=== PATIENT | male | born 1990 | race Caucasian/White ===

== ENCOUNTER 2018-10-24 13:51 | Emergency (ER) | payer SELFPAY ==
[2018-10-24 13:51] VITALS: BP 123/83; PULSE 94; RESP 15; TEMP 36.7; O2SAT 96; BMI 19.6
--- NOTE | 2018-10-24 16:15 | ED.VIS.GEN ---
History of Present Illness <Adam Puri - Last Filed: 10/24/18 16:33> Detail of Chief Complaint: Neck pain Informant: Patient Onset: Weeks - Pain is been present intermittent times years. It has been constant since . He describes 6-7 episodes every hour. The symptoms are worse with movement., Month(s) Context: Onset with activity Timing: Continuous Current Severity: Moderate Maximum Severity: Moderate Worsened by: Movement Relieved by: Nothing Associated Symptoms: Denies paresthesia or weakness or dizziness or headache or trauma Narrative: He describes bursts of pain and warmth to the right posterior neck. He is worried he has a blood clot on aneurysm because his father did. The symptoms have been intermittent for years but more constant for the past 3 days. Prior similar symptoms: Yes Recent Illness/Hospitalization: No <SarithaMonica - Last Filed: 10/24/18 17:49> Chief Complaint: Other, Pain/Inj Past Medical History <Adam Puri - Last Filed: 10/24/18 16:33> Smoking Status: Never smoker <AngelagayatriMonica - Last Filed: 10/24/18 17:49> - Allergies and Home Meds Allergies/Adverse Reactions: Allergies [facility] Allergy (Uncoded 10/24/18 13:52) Unknown Primary Care Physician: Endeelia Lynch MD [Primary Care Provider] - Review of Systems General: Denies: Chills, Fever Eyes: Denies: Visual changes - left, Blurred vision - left ENT: Denies: Bilateral ear pain, Left ear pain Cardiovascular: Denies: Chest pain, Palpitations Respiratory: Denies: Dyspnea, Cough, Sputum Gastrointestinal: Denies: Abdominal pain, Nausea, Vomiting Musculoskeletal: Denies: Neck pain - Unable to reproduce right posterior soft tissue neck tenderness. No lymphadenopathy or skin lesions noted, Back pain - Right Skin: Denies: Rash, Abscess Neurological: Denies: Headache, Weakness, Parasthesia <SarithaMonica - Last Filed: 10/24/18 17:49> Physical Exam Vital Signs/Narrative: Vital Signs Temp Pulse Resp BP Pulse Ox 10/24/18 16:29 17 10/24/18 13:51 98.1 F 94 15 123/83 H 96 <JaxsonAdam - Last Filed: 10/24/18 16:33> Vital Signs/Narrative: Vital Signs Temp Pulse Resp BP Pulse Ox 10/24/18 13:51 98.1 F 94 15 123/83 H 96 Inital Vital Signs reviewed: Yes General: Negative for: Well nourished, Well developed Head: Negative for: Normocephalic, Atraumatic Eyes: Negative for: Perrl, EOMI, Pale conjunctiva ENT: Negative for: Moist mucous membranes, No rhinorrhea Neck: Negative for: Supple, Nontender, No lymphadenopathy Cardiovascular: - - No carotid bruit heard.. Negative for: Regular rate, Regular rhythm Respiratory: Negative for: No distress, CTA bilaterally Abdomen: Negative for: Soft, Nontender, Nondistended Back: Negative for: Nontender, Normal Inspection Extremities: Negative for: Nontender, No edema Skin: Negative for: Normal color, No rash Neurological: Alert, Oriented x3, Normal Strength, Normal Sensation, - - Neck is supple. There is no meningeal signs. He is neurologically and neurovascularly intact.. Negative for: Weakness Psychological: Normal affect, Normal Mood <Monica Melara - Last Filed: 10/24/18 17:49> Diagnostic/Tx/Re-eval - Medical Decision Making Evaluated patient with our RESEARCH PROGRAM INTERN. Patient complaining of an abnormal sensation in the right side of his neck. He is concerned that some vascular abnormality. He has had no other symptoms. Well-appearing young male. No acute distress. HEENT exam normal. Neck nontender. No lymphadenopathy. No swelling. Normal neck exam with normal range of motion and rotation. No swelling. No carotid bruits. Otherwise exam is normal. Lungs clear to auscultation. Heart murmur. Abdomen soft and nontender. Extremities moves all 4. Neurovascular intact. Neuro exam normal. Patient has normal exam. Does not need any imaging or testing in the ER today. He can follow-up with outpatient with his primary care physician. Impression: 1. Musculoskeletal neck pain uncertain etiology <Adam Puri - Last Filed: 10/24/18 16:33> - Medical Decision Making He is neurologically intact and nontoxic in appearance. His pain is sporadic I am was unable to reproduce it. There was no fullness or redness or lymphadenopathy appreciated. Because of his soft tissue neck pain is unclear at this time. He did have decreased range of motion with turning his head to the left. No carotid bruit was noted. May have a chronic ligament strain or tendon tightness. It is unclear and he will need further evaluation of his symptoms. He will follow-up with his primary care provider. He was discharged in stable condition. Initially I had prescribed him Flexeril but decided that it may not be necessary as I could not reproduce the pain. He will follow-up with his primary care provider. Impression Musculoskeletal neck pain uncertain etiology <Monica Melara - Last Filed: 10/24/18 17:49> ED Disposition <Adam Puri - Last Filed: 10/24/18 16:33> <Monica Melara - Last Filed: 10/24/18 17:49> - Plan for ED Patient: Disposition: Home or Assisted Living Diagnosis: Cervical myofascial strain Prescriptions: cycloBENZAPRine HCl [Flexeril] 10 mg PO TID PRN PRN #15 tab PRN Reason: Pain Prescription Printed Referrals: Enedelia Lynch MD [Primary Care Provider] -
[2018-10-24 16:29] VITALS: RESP 17
== END 2018-10-24 16:32 | disposition home or self-care (01) ==
PROVIDERS: Emergency Provider Nurse Practitioner; Family Provider Internal Medicine; PCP Internal Medicine
DX: S16.1XXA Strain of muscle, fascia and tendon at neck level, initial encounter (principal); X58.XXXA Exposure to other specified factors, initial encounter; Y93.89 Activity, other specified; Y92.89 Other specified places as the place of occurrence of the external cause; Y99.8 Other external cause status
CPT/HCPCS: 99282

== ENCOUNTER 2019-07-18 17:42 | Emergency (ER) | payer BC, SELFPAY ==
[2019-07-18 17:43] VITALS: BP 123/74; PULSE 85; RESP 16; TEMP 36.9; O2SAT 98; BMI 20.7
--- NOTE | 2019-07-18 18:10 | RAD_ITS ---
STUDY: X-RAY CHEST REASON FOR EXAM: Male, 28 years old. DIZZINESS, SHORTNESS OF BREATH TECHNIQUE: Portable chest COMPARISON: 08/06/2011 FINDINGS: There are mild bibasilar pulmonary opacities. There is no consolidation. There is no demonstrated pleural abnormality. Normal size heart. Normal mediastinum and cuate. Normal visualized pulmonary arteries. Normal visualized aortic arch and descending thoracic aorta. Normal visualized thoracic spine. Normal visualized ribs, clavicles, and shoulders. There is no demonstrated abnormality of the visualized soft tissue structures of the upper abdomen. RAD/Chest 1 View (Portable) IMPRESSION: Mild bibasilar pulmonary opacities, no consolidation Electronically Signed: Mc Miller, at 18:55 EDT Tel , Service support ,
--- NOTE | 2019-07-18 18:17 | ED.VISSUMM ---
- ER Visit Summary Date of Service: 07/18/19 Chief Complaint: Dysuria and penile discharge History of Present Illness: The patient is a [address] Lynch. He states that he has dysuria that began 5 days ago. He denies frequency. Reports he has had penile discharge for the past 3 days that is clear/white. He does report he sexually active. Last sexual intercourse approximately 1 month ago. He is with a single partner and has unprotected intercourse. He states that he has not stepped out and he does not believe she has stepped out either. He has been with her for 8 years. There is been no insertive anal intercourse. Patient was seen at [facility] and had urinalysis obtained and was placed on Bactrim. He was called and told the urine culture was negative. Patient also reports he has a cough that began a week ago. Lasted for 4 days and is completely resolved. He it is nonproductive. He reports he has had chills. However, he states that he has become short of breath today and lightheaded. This does increase when he stands. He is not passed out. Patient has had sick contacts. He lives with his significant other who is been working at [employer] and he reports that she went to a for her grandfather who from [place] 2 weeks ago. He states that he has been quarantined otherwise. States that his was ill approximately 2 weeks ago 2. Physical Examination: Vitals: Stable. Afebrile. General: Well-nourished and well-developed. Head: Normocephalic atraumatic. Neck: Supple, no lymphadenopathy. No JVD. Nontender. Cardiovascular: Regular rate and rhythm. No murmurs. Respiratory: No respiratory distress. Clear to auscultation bilaterally. Abdominal: Soft, nontender, nondistended, normal bowel sounds. No guarding, rebound, or peritoneal signs. : Normal uncircumcised male. There is a small amount of creamy discharge at the meatus. There is no rash. Has no testicular tenderness to palpation. Back: Nontender. Extremities: Nontender, no edema. Skin: Normal color, no rash. Neurologic: Alert and oriented ?3. Cranial nerves II through XII are intact. Normal strength and sensation. Psych: Normal affect. Test Results: CBC is normal. Chem-7 is marked for glucose of 123 and creatinine 1.34. His creatinine was 1.17 previously. UA shows ketones and blood. Clinical Impression(s) from Imaging Studies Chest X-Ray 07/18/19 18:10 IMPRESSION: Mild bibasilar pulmonary opacities, no consolidation Electronically Signed: Mc Miller, at 18:55 EDT Tel , Service support , Emergency Department Course and Treatment: Patient was given Rocephin IM and Zithromax p.o. He had negative orthostatic vital signs. Patient refused IV fluids. Treatment Plan: Patient be discharged with instructions to stop his Bactrim. He is instructed to push fluids. Follow-up with his primary care physician in 2 to 3 days if not improving. He will be contacted if his gonorrhea or chlamydia is positive so that he can tell his significant other and she can be treated as well. Return to the emergency department for any worsening symptoms. Disposition: To home in improved and stable condition. Impression: 1. Urethritis. 2. Renal insufficiency. This note was generated with Dualog dictation software. It may contain incorrect words, spelling, and punctuation that were not noted in review of the chart prior to signing ED Disposition - Plan for ED Patient: Instructions: ED Urethritis Infec Vs Inflam Adult Male Referrals: Enedelia Lynch MD [Primary Care Provider] - 3-5 Days if not improving
[2019-07-18 18:25] LABS: Bacteria 0 SEEN /hpf (None Seen); Mucous, Urine 0 SEEN /hpf (<or=2+); Red Blood Cells-Urine 0 SEEN /hpf (0-5); Squamous Epithelial Cells - UA 0 SEEN /hpf (0-5)
[2019-07-18] MEDS: Azithromycin 250 MG Tablet 1000 MG PO (18:28)
[2019-07-18 18:29] VITALS: BP 113/80; BP 115/85; BP 117/82; PULSE 62; PULSE 68; PULSE 80
[2019-07-18 18:31] LABS: Absolute Neutrophil Count 5.6 X10^3/uL (2.0-7.7); Basophil# 0.03 X10^3/uL; Basophil% 0.3 % (0-1); Eosinophil# 0.07 X10^3/uL; Eosinophils% 0.8 % (0-5); Hematocrit 44.9 % (40-54); Hemoglobin 15.4 g/dL (13.0-16.5); Lymphocyte % 30.1 % (19-41); Mean Corp Hgb Conc 34.3 g/dL (32-36); Mean Corpuscular Hgb 30.6 pg (27.0-32.0); Mean Corpuscular Volume 89.1 fL (80-94); Mean Platelet Vol. 8.9 fl (6.2-12.0); Monocyte# 0.74 X10^3/uL; NRBC Flagged by Analyzer 0 % (0-5); Neutrophil # 5.63 X10^3/uL (2.7-7.7); Neutrophil % 60.6 % (47-70); Platelet Count 331 K/mm3 (150-450); RBC Distribution Width CV 12.1 % (11.6-14.6); RBC Distribution Width SD 39.4 fl (35.1-43.9); Red Blood Count 5.04 M/mm3 (4.6-6.2); White Blood Count 9.3 K/mm3 (4.4-11.0)
[2019-07-18 18:40] LABS: Color, Urine Yellow (Yellow); Glucose, Dipstick Normal (Normal); Ketone-Dipstick 5 mg/dl (Negative); Leukocyte Esterase-Dipstick Negative /ul (Negative); Nitrite-Dipstick Negative (Negative); Occult Blood-Urine 10 /ul (Negative); Protein-Dipstick Negative (Negative); Urine Bilirubin Dipstick Negative (Negative); Urine Clarity Clear (Clear); Urine Urobilinogen Normal (Normal)
[2019-07-18 18:47] LABS: Anion Gap 4 (5-15); BUN 15 mg/dL (7-18); BUN/Creat Ratio 11.2 RATIO (10-20); Calcium,Total 9.6 mg/dL (8.5-10.1); Chloride 107 mmol/L (98-107); Creatinine, Serum 1.34 mg/dL (0.70-1.30); EST Glomerular Filtration Rate 67 mL/min (>60); Est Glom Filt Rate - Afr Amer 81 mL/min (>60); Estimated Creatinine Clearance 75.92 ml/min; Glucose 123 mg/dL (74-106); Sodium Level 139 mmol/L (136-145)
[2019-07-18 18:48] LABS: White Blood Cells 0-5 SEEN /hpf (0-5)
--- NOTE | 2019-07-18 18:52 | ED.RN ---
aware of pt not receiving IV fluids.
[2019-07-18 19:16] VITALS: BP 112/82; PULSE 75; RESP 17; O2SAT 97
--- NOTE | 2019-07-18 19:17 | ED.RN ---
shot time observed for greater than 15 minutes no reaction noted by this rn. pt d/c.
[2019-07-18 20:19] LABS: Chlamydia Trachomatis by PCR Negative (Negative); Neisserai gonorrhoeae by PCR Negative (Negative); Probe Check PASS; Sample Adequacy Control PASS; Specimen Processing Control PASS
== END 2019-07-18 19:18 | disposition home or self-care (01) ==
LOC: ED 18:55
PROVIDERS: Emergency Provider Emergency Medicine; PCP Internal Medicine
DX: N34.2 Other urethritis (principal); N28.9 Disorder of kidney and ureter, unspecified
CPT/HCPCS: 71045; 80048; 81001; 85025; 87491; 87591; 96372; 99285; J7030; A4216

== ENCOUNTER 2020-02-20 17:48 | Emergency (ER) | payer BC, SELFPAY ==
[2020-02-20 17:49] VITALS: BP 114/66; PULSE 110; RESP 18; TEMP 36.9; O2SAT 95; BMI 19.5
--- NOTE | 2020-02-20 17:59 | ED.DCSUM_ITS ---
History of Present Illness Chief Complaint: Dental Informant: Patient Onset: Days Context: Gradual Onset Timing: Continuous Current Severity: Moderate Maximum Severity: Moderate Narrative: The patient is a 29-year-old male who presents to the emergency department dental pain. Patient states that he is actually scheduled for multiple extraction, but not until March of this coming year. He states that he has multiple cavities and molars that need to be removed because of deep space cavity. He states over the past 3 or 4 days, he has had increasing pain. He states especially at night, he will have throbbing. He states when he chews, he gets pain. He denies any trouble speaking or swallowing. Denies any fevers or chills. Has been taking ibuprofen with some improvement, but still has persistent pain. Prior similar symptoms: Yes Recent Illness/Hospitalization: No Past Medical History - Allergies and Home Meds Allergies/Adverse Reactions: Allergies [facility] Allergy (Uncoded 02/20/20 17:52) Unknown Primary Care Physician: Enedelia yLnch MD [Primary Care Provider] - Prior records reviewed: Yes Past Medical History: None Surgical History: no surgical history Smoking Status: Never smoker Review of Systems General: Denies: Chills, Fever, Sweats Eyes: Denies: Visual changes - bilaterally, Diplopia ENT: Denies: Rhinorrhea, Sore throat Cardiovascular: Denies: Chest pain, Palpitations Respiratory: Denies: Dyspnea, Cough, Dyspnea on exertion Gastrointestinal: Denies: Abdominal pain, Nausea, Vomiting, Diarrhea, Melena, Hematochezia Genitourinary: Denies: Dysuria, Hematuria, Frequency Musculoskeletal: Denies: Back pain, Extremity Pain Skin: Denies: Rash, Wounds Neurological: Denies: Headache, Weakness, Numbness Physical Exam Vital Signs/Narrative: Vital Signs Temp Pulse Resp BP Pulse Ox 02/20/20 17:49 98.4 F 110 H 18 114/66 95 Inital Vital Signs reviewed: Yes General: Well nourished, Well developed, No Acute Distress Head: Normocephalic, Atraumatic Eyes: Perrl, EOMI ENT: Moist mucous membranes, No rhinorrhea, - - Oromucosa is pink and moist. There is widespread dental disease. There is significant cavity of tooth #17. He is also has cavity with some focal gum swelling at 30 and 31. The submental space is soft. Neck: Supple, Nontender Cardiovascular: Regular rate, Regular rhythm, No murmurs Respiratory: No distress, CTA bilaterally, Chest nontender Abdomen: Soft, Nontender, Nondistended, Normal bowel sounds Back: Nontender, Normal Inspection Extremities: Nontender, No edema Skin: Normal color, No rash Neurological: Alert, Oriented x3, Cranial nerves II-XII grossly intact, Normal Strength, Normal Sensation Psychological: Normal affect, Normal Mood Diagnostic/Tx/Re-eval - Medical Decision Making The patient presents with dental pain. He has widespread dental disease and is actually scheduled for extraction. He does have some erythema along the gumline. There is multiple cavities within the teeth. There is no Tyler angina. He has no trismus or stridor. The submental space is soft. I am going to treat him with antibiotics. I also given a short course of analgesics, but counseled him that he needs to see his dentist. He is comfortable with this plan of care. He will be discharged home. Impression 1. Dental cavities 2. Periapical abscess ED Disposition - Plan for ED Patient: Instructions: ED ABSCESS DENTAL Prescriptions: Amox/Clavulanate Tablet [Augmentin Tablet] 875 mg PO Q12H #20 tab Prescription Printed Hydrocodone Bitart/Apap 5-325 [[place] 5MG-325MG] 1 tab PO Q6H PRN PRN 3 Days #10 tab PRN Reason: Pain Prescription Printed Referrals: Enedelia Lynch MD [Primary Care Provider] -
== END 2020-02-20 18:23 | disposition home or self-care (01) ==
LOC: ED 18:14
PROVIDERS: Emergency Provider Emergency Medicine; PCP Internal Medicine
DX: K04.7 Periapical abscess without sinus (principal); K02.9 Dental caries, unspecified
CPT/HCPCS: 99282

== ENCOUNTER 2021-09-15 22:16 | Emergency (ER) | payer BC, SELFPAY ==
[2021-09-15 22:16] VITALS: BP 111/85; PULSE 92; RESP 16; TEMP 36.4; O2SAT 99
--- NOTE | 2021-09-15 22:28 | ED.VIS.LOWEX ---
HPI History of Present Illness HPI Narrative: Patient presents with pain in the posterior aspect of his left thigh that began approximate 1 hour prior to arrival. Patient states it began rather suddenly. Patient states it has been constant. Patient describes it as dull and aching. Patient states he was standing when the pain began. Patient states it is worse with standing. Patient denies any paresthesias or weakness. Patient denies any trauma or injury. Patient is concerned that this may be from a blood clot. Chief Complaint: Lower Extremity Injury Onset/Context/Timing Onset: Today and Hours (1) Context: Sudden Onset Quality of Pain: Dull and Aching Location: Left posterior thigh Worsened by: Standing Relieved by: Nothing Associated Symptoms Associated Symptoms: Negative for Parasthesia, Weakness or Loss of Funtion PFSH PFSH Medical History no medical history no medical history Home Medications NK 09/15/21 [History Last Taken Unknown] Allergy/AdvReac Type Severity Reaction Status Date / Time No Known Allergies Allergy Verified 09/15/21 22:18 Family History no significant family his Surgical History no surgical history no surgical history Social History Smoking Status: Never smoker ROS ROS ED Constitutional Constitutional ED: Denies chills or fever(s) Eyes Eyes: Denies blurry vision or change in vision ENT ENT ED: Denies rhinorrhea or sore throat Cardiovascular Cardiovascular: Denies chest pain or palpitations Respiratory/Chest Respiratory/Chest: Denies cough or dyspnea Gastrointestinal Gastrointestinal: Denies nausea or vomiting Genitourinary Genitourinary ED: Denies dysuria or hematuria Musculoskeletal Musculoskeletal: Denies back pain or neck pain Integumentary Denies abscess or rash Neurologic Neurologic: Denies headache(s) or weakness Allergic/Immunologic Allergic/Immunologic ED: Denies mouth swelling or urticaria EXAM Physical Exam Const Vital Signs: 09/15/21 22:16 Temperature 97.6 F L Temperature Source Temporal Pulse Rate 92 Respiratory Rate 16 Blood Pressure 111/85 H Blood Pressure Mean 93 Pulse Ox 99 Oxygen Delivery Method Room Air Positive well nourished and well developed General Appearance ED: well developed and NAD HEENT Reports moist mucous membranes Neck full ROM Extremity Extremity Narrative: There is tenderness over the left posterior thigh along the hamstring muscles. There is pain with flexion of the left hip. There is no calf tenderness. There is no edema. There is no ecchymosis. There is no tenderness over the lumbar spine or sciatic notch. Strength is 5/5 bilaterally in the lower extremities. There are no sensory deficits noted. Neuro oriented x3, CN's II-XII intact bilaterally, moves all extremities and no sensory deficits noted Sensorium / Orientation: alert Motor Exam: strength 5/5 throughout Psych mental status grossly normal MDM MDM MDM Narrative Medical decision making narrative: Patient was advised that this is most likely muscular in nature. I do not think that this is a DVT. There is no swelling. Patient has no risk factors for DVT. There is no tenderness medially along the greater saphenous vein. There is no erythema or warmth. Patient was instructed to use ice to the area. Patient was instructed to take Tylenol or ibuprofen as needed for pain. Patient was instructed to follow-up with his primary care physician in 5 to 7 days. Patient left prior to receiving discharge instructions. Discharge Plan Triage Chief Complaint: Lower Extremity Injury ED Provider: Kalen Bird Dx/Rx/DC Orders Clinical Impression: Left thigh pain Instructions: ED Muscle Strain, Extremity Prescriptions: No Action NK Primary Care Provider: Enedelia Lynch Referrals: Enedelia Lynch MD [Primary Care Provider] - 5-7 Days Disposition Disposition: Home, Self Care
--- NOTE | 2021-09-15 22:32 | NURSING ---
pt voiced frustration with doctors POC. Pt put on shoes and headed out of room. When asked if he wanted to wait for Doctor orders pt refused said I can get my own Ice without paying $10,000 for it. doctor updated.
== END 2021-09-15 22:39 | disposition home or self-care (01) ==
LOC: ED 22:38
PROVIDERS: Emergency Provider Emergency Medicine; PCP Internal Medicine; Visit Provider Emergency Medicine
DX: M79.652 Pain in left thigh (principal)
CPT/HCPCS: 99281

== ENCOUNTER 2022-10-24 03:11 | Emergency (ER) | payer BC, SELFPAY ==
[2022-10-24 03:13] VITALS: BP 109/70; PULSE 77; RESP 18; TEMP 36.5; O2SAT 99; BMI 19.8
--- NOTE | 2022-10-24 03:19 | EX.ED.VIS.PS ---
HPI HPI - Psych History of Present Illness Chief Complaint: Suicidal Informant: patient Narrative Narrative: Patient feeling depressed and having thoughts of suicide with a plan to shoot himself in the head and apparently gestured this tonight, he also has had a suicidal gesture 7 or 8 months ago. Police brought him under pink slip. He has been depressed about his relationship and other things in the life and feels like his life is falling apart. He uses marijuana fairly frequently, alcohol less frequently, and no other drugs no IV drugs. He denies any symptoms of psychosis. PFSH PFSH Medical History no medical history no medical history Home Medications NK 09/15/21 [History Last Taken Unknown] Allergy/AdvReac Type Severity Reaction Status Date / Time No Known Allergies Allergy Verified 10/24/22 03:13 Surgical History no surgical history Social History (Updated 10/24/22 @ 03:[address] Long Ling MD) Smoking Status: Never smoker alcohol intake: current alcohol intake frequency: a few times a month substance use type: marijuana ROS ROS ED Constitutional Constitutional ED: Denies chills or fever(s) Eyes Eyes: Denies change in vision or diplopia ENT ENT ED: Denies rhinorrhea or sore throat Cardiovascular Cardiovascular: Denies chest pain or palpitations Respiratory/Chest Respiratory/Chest: Denies cough or dyspnea Gastrointestinal Gastrointestinal: Denies abdominal pain, diarrhea, nausea or vomiting Genitourinary Genitourinary ED: Denies dysuria or hematuria Musculoskeletal Musculoskeletal: Denies back pain or neck pain Integumentary Denies abscess or rash Neurologic Neurologic: Denies headache(s), paresthesias or weakness Psychiatric Psychiatric: Reports depression, suicidal ideation and suicidal thoughts; Denies homicidal ideation EXAM Physical Exam Const Vital Signs: 10/24/22 03:13 10/24/22 05:12 Temperature 97.7 F L Temperature Source Temporal Pulse Rate 77 Respiratory Rate 18 15 Blood Pressure 109/70 Blood Pressure Mean 83 Pulse Ox 99 Oxygen Delivery Method Room Air Positive well nourished and well developed General Appearance ED: well developed and NAD HEENT Reports moist mucous membranes normocephalic and atraumatic Eyes PERRL and EOMs intact bilaterally General Eye ED: Negative for scleral icterus Neck no lymphadenopathy and supple Resp normal respiratory effort and clear to auscultation bilaterally Cardio no murmurs Rate: regular rate Rhythm: regular rhythm GI non-tender and non-distended Auscultation: normoactive bowel sounds Palpation: soft Back/Spine no CVA tenderness and normal ROM Extremity normal to inspection General Extremety ED: Negative for edema General Extremity: Negative for edema Neuro oriented x3, CN's II-XII intact bilaterally, no sensory deficits noted and gait normal Sensorium / Orientation: alert Motor Exam: strength 5/5 throughout Psych mental status grossly normal, thought process normal, cooperative, activity/motor behavior normal and denies homicidal ideation Mood & Affect: depressed Thought Content: suicidality Skin Lesions: no lesions Rashes: no rashes MDM MDM MDM Narrative Medical decision making narrative: Patient cooperative here with normal vital signs and unremarkable labs, toxicology noted. Patient medically cleared and referred to crisis for further evaluation and disposition. Lab Data Attestation: I reviewed the patient's lab results. Labs: Laboratory Results - last 24 hr 10/24/22 10/24/22 04:05 04:20 WBC 8.2 RBC 4.74 Hgb 14.4 Hct 42.3 MCV 89.2 MCH 30.4 MCHC 34.0 RDW Std Deviation 43.3 RDW Coeff of Elliot 13.3 Plt Count 283 MPV 9.2 Immature Gran % (Auto) 0.200 Neut % (Auto) 67.7 Lymph % (Auto) 23.2 Piatt % (Auto) 7.8 Eos % (Auto) 0.7 Baso % (Auto) 0.4 Absolute Neuts (auto) 5.6 Absolute Lymphs (auto) 1.90 Nucleated RBC % 0 Sodium 139 Potassium 3.4 L Chloride 107 Carbon Dioxide 28.0 Anion Gap 4 L BUN 15 Creatinine 0.90 Estim Creat Clear Calc 105.13 Est GFR (MDRD) Af Amer 125 Est GFR (MDRD) Non-Af 104 BUN/Creatinine Ratio 16.6 Glucose 98 Calcium 8.4 L Total Bilirubin 0.50 AST 12 L ALT 16 Alkaline Phosphatase 80 Total Protein 7.1 Albumin 3.9 Globulin 3.2 Albumin/Globulin Ratio 1.2 Urine Opiates Screen NEGATIVE Urine Methadone Screen NEGATIVE Ur Barbiturates Screen NEGATIVE Ur Phencyclidine Scrn NEGATIVE Ur Amphetamines Screen NEGATIVE MDMA (Ecstasy) Screen NEGATIVE U Benzodiazepines Scrn NEGATIVE Urine Cocaine Screen NEGATIVE U Cannabinoids Screen POSITIVE H Ur Drug Screen Comment Ethyl Alcohol 4.0 Management Discussion w/another healthcare provider: social worker school/Case management Discharge Plan Triage Chief Complaint: Suicidal ED Provider: Long Ling Dx/Rx/DC Orders Clinical Impression: Suicidal ideation Prescriptions: No Action NK Primary Care Provider: Care Physician,No Primary Referrals: Care Physician,No Primary [Primary Care Provider] - Disposition Disposition: Psychiatric Hospital or Unit
[2022-10-24 04:13] LABS: Absolute Neutrophil Count 5.6 X10^3/uL (2.0-7.7); Basophil# 0.03 X10^3/uL; Basophil% 0.4 % (0-1); Eosinophil# 0.06 X10^3/uL; Eosinophils% 0.7 % (0-5); Hematocrit 42.3 % (40-54); Hemoglobin 14.4 g/dL (13.0-16.5); Lymphocyte % 23.2 % (19-41); Mean Corpuscular Hgb 30.4 pg (27.0-32.0); Mean Corpuscular Volume 89.2 fL (80-94); Mean Platelet Vol. 9.2 fl (6.2-12.0); Monocyte# 0.64 X10^3/uL; Monocyte% 7.8 % (0-10); NRBC Flagged by Analyzer 0 % (0-5); Neutrophil # 5.55 X10^3/uL (2.7-7.7); Neutrophil % 67.7 % (47-70); Platelet Count 283 K/mm3 (150-450); RBC Distribution Width CV 13.3 % (11.6-14.6); RBC Distribution Width SD 43.3 fl (35.1-43.9); Red Blood Count 4.74 M/mm3 (4.6-6.2); White Blood Count 8.2 K/mm3 (4.4-11.0)
[2022-10-24 04:37] LABS: ALB/GLOB Ratio 1.2 RATIO (0.9-2.4); AST(SGOT) 12 U/L (15-37); Alanine Aminotransfer ALT/SGPT 16 U/L (16-61); Albumin, Serum 3.9 g/dL (3.2-5.0); Alkaline Phosphatase 80 U/L (45-117); Anion Gap 4 (5-15); BUN 15 mg/dL (7-18); BUN/Creat Ratio 16.6 RATIO (10-20); Calcium,Total 8.4 mg/dL (8.5-10.1); Chloride 107 mmol/L (98-107); EST Glomerular Filtration Rate 104 mL/min (>60); Est Glom Filt Rate - Afr Amer 125 mL/min (>60); Estimated Creatinine Clearance 105.13 ml/min; Globulin 3.2 g/dL (2.2-4.2); Glucose 98 mg/dL (74-106); Potassium 3.4 mmol/L (3.5-5.1); Protein, Total 7.1 g/dL (6.4-8.2); Sodium Level 139 mmol/L (136-145)
[2022-10-24 04:44] LABS: Amphetamine Urine VISTA NEGATIVE (<1000 ng/mL); Barbiturate Urine VISTA NEGATIVE (< 200 ng/mL); Benzodiazepine Urine VISTA NEGATIVE (< 200 ng/mL); Cocaine Urine VISTA NEGATIVE (< 300 ng/mL); Ecstacy Urine VISTA NEGATIVE (< 500 ng/mL); Methadone Urine VISTA NEGATIVE (< 300 ng/mL); PCP Urine VISTA NEGATIVE (< 25 ng/mL); THC Urine VISTA POSITIVE (< 50 ng/mL); Vista UDS pH Range 6
[2022-10-24 05:12] VITALS: RESP 15
--- NOTE | 2022-10-24 09:04 | EKG12_ITS ---
Test Reason : MENTAL HEALTH Blood Pressure : / mmHG Vent. Rate : 060 BPM Atrial Rate : 060 BPM P-R Int : 136 ms QRS Dur : 106 ms QT Int : 386 ms P-R-T Axes : 038 080 072 degrees QTc Int : 386 ms Normal sinus rhythm Incomplete right bundle branch block Borderline ECG Confirmed by CLEO BONILLA, MELISSA ([id number]), graphics editor SUSAN MCKEON ([id number]) on 10/25/2022 9:57:52 AM Referred By: DOREEN Confirmed By:MELISSA GALLO MD
[2022-10-24 09:09] VITALS: BP 117/87; PULSE 64; RESP 14; O2SAT 97
[2022-10-24 10:18] VITALS: RESP 16
--- NOTE | 2022-10-24 12:31 | ED.RN ---
ANGÉLICA CALLED, REQUESTING QT/QTC FROM ECG READ TO THEM OVER THE PHONE. DENY FURTHER QUESTIONS.
--- NOTE | 2022-10-24 12:37 | ED.RN ---
PT RESTING QUIETLY IN BED, ATE LUNCH, DENIES FURTHER NEEDS. PT CONTINUES TO COOPERATIVE WITH CARE
--- NOTE | 2022-10-24 12:56 | NURSING ---
CALLED PHYSICIANS TO SET UP TRANSPORT TO [facility]- ETA GIVEN 90 MINUTES-- [id number]
[2022-10-24 13:00] VITALS: BP 121/83; PULSE 68; RESP 16; O2SAT 98
--- NOTE | 2022-10-24 13:10 | ED.RN ---
NURSE TO NURSE REPORT CALLED TO ANNELIESE AT [facility]. ALL QUESTIONS ANSWERED.
== END 2022-10-24 14:58 ==
PROVIDERS: Emergency Provider Emergency Medicine; Visit Provider Emergency Medicine
DX: F32.A Depression, unspecified (principal); R45.851 Suicidal ideations
CPT/HCPCS: 80053; 80307; 82077; 85025; 87811; 93005; 99285; A4216

== ENCOUNTER 2022-12-24 15:12 | Emergency (ER) | payer BC, SELFPAY ==
[2022-12-24 15:13] VITALS: BP 120/85; PULSE 90; RESP 18; TEMP 36.1; O2SAT 100
[2022-12-24 15:16] VITALS: BMI 19.8
--- NOTE | 2022-12-24 15:47 | EX.ED.DYSGE1 ---
HPI History of Present Illness Chief Complaint: Rash Informant: patient Narrative Narrative: She has had a rash for about 11 days. He was tried on about a 5-day course of prednisone but did not help. He states it itches quite a bit. It started on his arms. Its really on arms and legs now. He had just a couple spots on his body. Nothing in his mouth. No fever. No nausea vomiting. No blistering. No known exposures. No recent antibiotics. He was on topical and oral steroids by urgent care. [facility] Medical History Anxiety Depression Prediabetes Home Medications acyclovir 400 mg tablet 400 mg PO BID #14 tabs 12/24/22 [Rx Last Taken Unknown] hydroxyzine HCl 25 mg tablet 25 mg PO Q6H PRN itching #20 tabs 12/24/22 [Rx Last Taken Unknown] Allergy/AdvReac Type Severity Reaction Status Date / Time No Known Allergies Allergy Verified 12/24/22 15:13 Social History Smoking Status: Never smoker alcohol intake: current alcohol intake frequency: a few times a month substance use type: marijuana ROS ROS ED Constitutional Constitutional ED: Denies chills or fever(s) Eyes Eyes: Denies blurry vision ENT ENT ED: Denies rhinorrhea or sore throat Cardiovascular Cardiovascular: Denies chest pain or palpitations Respiratory/Chest Respiratory/Chest: Denies cough or dyspnea Gastrointestinal Gastrointestinal: Denies abdominal pain, diarrhea, nausea or vomiting Genitourinary Genitourinary ED: Denies dysuria Musculoskeletal Musculoskeletal: Denies arthralgias or myalgias Integumentary Reports rash Neurologic Neurologic: Denies headache(s) or paresthesias Endocrine Endocrinology: Denies polydipsia or polyuria Hematologic/Lymphatic Hematologic/Lymphatic: Denies lymphadenopathy Allergic/Immunologic Allergic/Immunologic ED: Denies urticaria EXAM Physical Exam Narrative Exam Narrative: General: Patient awake alert carries on normal conversation nontoxic. HEENT shows no rashes. No intraoral rashes. No petechiae or purpura. No ulcerations at all. Neck is supple no meningismus. Lungs are clear bilaterally and saturations are normal 100% on room air showing no hypoxia. Heart is regular. No murmur. Pulses are normal distally. Abdomen is soft completely nontender. No hepatosplenomegaly is noted. No lymphadenopathy. Extremities show no swelling or pain with motion. No swollen joints. Skin shows diffuse red coalescing pack she is mostly in the lower portion of upper and lower extremities. There are just a couple spots near the right and left hips. Almost none on the torso. There is a couple of these on the forearm that do appear to be target lesions more consistent with erythema multiforme. But we are 11 days into this and some of these I think have coalesced. Const Vital Signs: 12/24/22 15:13 Temperature 96.9 F L Temperature Source Temporal Pulse Rate 90 Respiratory Rate 18 Blood Pressure 120/85 H Blood Pressure Mean 96 Pulse Ox 100 Oxygen Delivery Method Room Air MDM MDM MDM Narrative Medical decision making narrative: Patient has already been tried on steroids. I explained that erythema multiforme and will go away on its own. He has had cold sores before so we will try acyclovir as this will sometimes be of benefit. We will write for medicines for itch. We discussed reasons to return and follow-up. Discharge Plan Triage Chief Complaint: Rash ED Provider: Paco Sandoval Dx/Rx/DC Orders Clinical Impression: Erythema multiforme Instructions: ED Erythema Multiforme Prescriptions: New hydroxyzine HCl 25 mg tablet 25 mg PO Q6H PRN (Reason: itching) Qty: 20 0RF acyclovir 400 mg tablet 400 mg PO BID Qty: 14 0RF Primary Care Provider: Nikolay Johnson Referrals: Gissel Silveira MD [Non-Staff] - 3-5 Days Care Physician,No Primary [Non-Staff] - Disposition Disposition: Home, Self Care Discharge Date/Time: 12/24/22 15:55
== END 2022-12-24 15:55 | disposition home or self-care (01) ==
LOC: ED 15:50
PROVIDERS: Emergency Provider Emergency Medicine; PCP Internal Medicine; Visit Provider Emergency Medicine
DX: L51.9 Erythema multiforme, unspecified (principal)
CPT/HCPCS: 99282

== ENCOUNTER 2023-04-23 08:55 | Inpatient (IN) | payer BC, SELFPAY ==
[2023-04-23] VITALS (9 sets, daily range): BP systolic 111–124; BP diastolic 68–86; PULSE 68–96; RESP 15–18; TEMP 35.7–36.6; O2SAT 95–98; BMI 21.2
--- NOTE | 2023-04-23 09:25 | EDS_ITS ---
HPI History of Present Illness Chief Complaint: Suicidal Informant: patient and EMS Narrative Narrative: 32-year-old male presenting to the emergency room with an intentional overdose. Patient states he was fighting with his child's mother when he took several h andfuls of pills. He states he got the pills from [place] when he was admitted 6 months ago for suicidal ideation. Patient states he knows there is trazodone but does not know any of the other medicines. This occurred about 40 minutes ago. He admits that he took this as it is an attempt to end his life. He continues to feel suicidal. He also notes some associated nausea and vomiting. Patient is not forthcoming with any information. [facility] Medical History Anxiety Depression Prediabetes Home Medications NK 04/23/23 [History Last Taken Unknown] Allergy/AdvReac Type Severity Reaction Status Date / Time No Known Allergies Allergy Verified 04/23/23 09:06 Social History Smoking Status: Never smoker alcohol intake: current alcohol intake frequency: a few times a month substance use type: marijuana ROS ROS ED Constitutional Constitutional ED: Denies chills, fever(s) or weight loss Eyes Eyes: Denies change in vision or diplopia ENT ENT ED: Denies ear pain, rhinorrhea or sore throat Cardiovascular Cardiovascular: Denies chest pain, orthopnea, palpitations or racing heartbeat Respiratory/Chest Respiratory/Chest: Denies cough, dyspnea or orthopnea Gastrointestinal Gastrointestinal: Reports nausea and vomiting; Denies abdominal pain or diarrhea Genitourinary Genitourinary ED: Denies dysuria, hematuria or urinary frequency Musculoskeletal Musculoskeletal: Denies arthralgias or myalgias Integumentary Denies abscess or rash Neurologic Neurologic: Denies headache(s) or weakness Psychiatric Psychiatric: Reports depression, suicidal ideation and suicidal thoughts; Denies anxiety Endocrine Endocrinology: Denies polydipsia, polyphagia or polyuria Allergic/Immunologic Allergic/Immunologic ED: Denies mouth swelling, tongue swelling or urticaria EXAM Physical Exam Narrative Exam Narrative: Patient appears nauseated. He speaks very quietly and with a paucity of words. Const Vital Signs: 04/23/23 08:56 04/23/23 10:32 04/23/23 13:00 Temperature 96.3 F L Temperature Source Temporal Pulse Rate 84 68 Respiratory Rate 15 16 18 Blood Pressure 124/86 H 116/78 Blood Pressure Mean 98 90 Pulse Ox 95 97 Oxygen Delivery Method Room Air Room Air 04/23/23 14:00 Temperature Temperature Source Pulse Rate Respiratory Rate 18 Blood Pressure Blood Pressure Mean Pulse Ox Oxygen Delivery Method Positive well nourished and well developed General Appearance ED: well developed HEENT Reports normocephalic, head/scalp atraumatic and moist mucous membranes Eyes PERRL and EOMs intact bilaterally Neck no lymphadenopathy, supple and no JVD Resp normal respiratory effort and clear to auscultation bilaterally Cardio regular rate, regular rhythm and no murmurs GI normal to inspection, nondistended, normoactive bowel sounds and non-tender Palpation: soft Back/Spine no CVA tenderness and normal ROM Extremity normal to inspection General Extremety ED: Negative for edema General Extremity: Negative for edema Neuro oriented x3 and CN's II-XII intact bilaterally Sensorium / Orientation: alert Motor Exam: strength 5/5 throughout Psych Psych Narrative: Patient admits to suicide attempt and suicidal thoughts Mood & Affect: depressed; Negative for tearful Skin no rashes or lesions noted and no wounds MDM MDM MDM Narrative Medical decision making narrative: Patient had a sitter placed due to suicidal ideation. ABG shows no acidosis a normal bicarbonate at 24.6. Basic blood work was obtained. Lactic acid 1.9 glucose 141 creatinine 1.03 potassium is 3.7 and CBC normal lipase 18 liver enzymes normal urinalysis no overt infection toxicology was obtained negative acetaminophen or salicylates alcohol was 0. Patient had a lot of retching and received Zofran. Charcoal/sorbitol was ordered as ingestion was well less than 60 minutes before arrival. Of the patient's belongings there is a Mountain Dew canned that is a hidden compartment style can. This is filled with various medications of different shapes colors and sizes. It is from this canister that he states that he took several handfuls of medications. I cannot be sure of how much he took or of what. He has been sleeping occasionally awakening to retch. I think will be very difficult to clear him within a few hours to go to psychiatric hospital. He has been watched on the monitor and does not show any QRS widening or dysrhythmias. I think it be best that we observe him in the hospital and after a prolonged period of observation consults mental health to see about placing him to psychiatric facility. I filled out a pink slip for this hospital. History & Record Review Discussion w/independent historian: EMS personnel and Patient Lab Data Attestation: I reviewed the patient's lab results. Labs: Laboratory Results - last 24 hr 04/23/23 04/23/23 09:45 13:19 WBC 8.6 RBC 5.19 Hgb 15.7 Hct 46.5 MCV 89.6 MCH 30.3 MCHC 33.8 RDW Std Deviation 39.7 RDW Coeff of Elliot 12.2 Plt Count 328 MPV 9.1 Immature Gran % (Auto) 0.400 Neut % (Auto) 69.3 Lymph % (Auto) 21.1 [place] % (Auto) 8.3 Eos % (Auto) 0.5 Baso % (Auto) 0.4 Absolute Neuts (auto) 6.0 Absolute Lymphs (auto) 1.81 Nucleated RBC % 0 PT 12.9 INR 1.0 APTT 27.6 Sodium 136 Potassium 3.7 Chloride 108 H Carbon Dioxide 24.0 Anion Gap 4 L BUN 21 H Creatinine 1.03 Estim Creat Clear Calc 97.86 Est GFR (MDRD) Af Amer 107 Est GFR (MDRD) Non-Af 89 BUN/Creatinine Ratio 20.4 H Glucose 141 H Lactic Acid 1.9 Calcium 9.1 Total Bilirubin 0.80 Direct Bilirubin 0.19 AST 13 L ALT 16 Alkaline Phosphatase 70 Troponin I High Sens 5 Total Protein 7.1 Albumin 3.9 Globulin 3.2 Lipase 18 Urine Color Yellow Urine Clarity Clear Urine pH 6.0 Ur Specific [place] 1.020 Urine Protein 30 H Urine Glucose (UA) Normal Urine Ketones Negative Urine Occult Blood 10 H Urine Nitrite Negative Urine Bilirubin Negative Urine Urobilinogen 1 H Ur Leukocyte Esterase Negative Urine RBC 0-5 SEEN Urine WBC 0-5 SEEN Ur Squamous Epith Cells 0 SEEN Urine Bacteria 0 SEEN Urine Mucus 0 SEEN Salicylates < 1.7 L Urine Opiates Screen NEGATIVE Urine Methadone Screen NEGATIVE Acetaminophen < 2.0 L Ur Barbiturates Screen NEGATIVE Ur Phencyclidine Scrn NEGATIVE Ur Amphetamines Screen NEGATIVE MDMA (Ecstasy) Screen POSITIVE H U Benzodiazepines Scrn NEGATIVE Urine Cocaine Screen NEGATIVE U Cannabinoids Screen POSITIVE H Ur Drug Screen Comment Ethyl Alcohol < 3.0 ABG Data ABG results: ABG 01/31/24 10:15 Specimen Type ART Sample Site L Radial pH 7.40 Bicarbonate Actual 24.6 Total CO2 26 Base Excess 0 O2 Saturation 99 ABG pCO2 39.9 ABG pO2 124 H O2 Delivery Device Room Air Vent Mode Not entered EKG Initial EKG: Attestation: I personally reviewed and interpreted this EKG as follows: Comments: Normal sinus rhythm with a ventricular rate of 89 bpm. No significant QT prolongation noted. Management Discussion w/another healthcare provider: Hospitalist Discharge Plan Triage Chief Complaint: Suicidal ED Provider: Sean Matthews Dx/Rx/DC Orders Prescriptions: No Action NK Primary Care Provider: Nikolay Johnson Referrals: Nikolay Johnson MD [Primary Care Provider] -
[2023-04-23 09:59] LABS: Absolute Lymphocyte Count 1.81 X10^3/uL (0.83-4.51); Basophil# 0.03 X10^3/uL; Basophil% 0.4 % (0-1); Eosinophil# 0.04 X10^3/uL; Eosinophils% 0.5 % (0-5); Hematocrit 46.5 % (40-54); Hemoglobin 15.7 g/dL (13.0-16.5); Lymphocyte # 1.81 X10^3/ul (0.83-4.51); Lymphocyte % 21.1 % (19-41); Mean Corp Hgb Conc 33.8 g/dL (32-36); Mean Corpuscular Hgb 30.3 pg (27.0-32.0); Mean Corpuscular Volume 89.6 fL (80-94); Mean Platelet Vol. 9.1 fl (6.2-12.0); Monocyte# 0.71 X10^3/uL; Monocyte% 8.3 % (0-10); NRBC Flagged by Analyzer 0 % (0-5); Neutrophil # 5.95 X10^3/uL (2.7-7.7); Neutrophil % 69.3 % (47-70); Platelet Count 328 K/mm3 (150-450); RBC Distribution Width CV 12.2 % (11.6-14.6); RBC Distribution Width SD 39.7 fl (35.1-43.9); Red Blood Count 5.19 M/mm3 (4.6-6.2); White Blood Count 8.6 K/mm3 (4.4-11.0)
[2023-04-23 10:12] LABS: Prothrombin Time (Protime)PT. 12.9 SECONDS (11.7-14.9)
[2023-04-23 10:13] LABS: Partial Thromboplast Time 27.6 Seconds (24.1-36.2)
[2023-04-23 10:19] LABS: Base Excess 0 mmol/L (-2 to +2); Bicarbonate 24.6 mmol/L (22-26); Blood Gas Specimen Type ART; Mode Not entered; O2 Delivery Device Room Air; PO2 124 mmHG (75-100); SITE L Radial; SO2 99 % (95-99); Total Carbon Dioxide 26 mmol/L; pCO2 39.9 mmHg (35-45)
[2023-04-23 10:21] LABS: AST(SGOT) 13 U/L (15-37); Alanine Aminotransfer ALT/SGPT 16 U/L (16-61); Albumin, Serum 3.9 g/dL (3.2-5.0); Alkaline Phosphatase 70 U/L (45-117); Anion Gap 4 (5-15); BUN 21 mg/dL (7-18); BUN/Creat Ratio 20.4 RATIO (10-20); Bilirubin, Direct 0.19 mg/dL (0.00-0.30); Calcium,Total 9.1 mg/dL (8.5-10.1); Chloride 108 mmol/L (98-107); Creatinine, Serum 1.03 mg/dL (0.70-1.30); EST Glomerular Filtration Rate 89 mL/min (>60); Est Glom Filt Rate - Afr Amer 107 mL/min (>60); Estimated Creatinine Clearance 97.86 ml/min; Globulin 3.2 g/dL (2.2-4.2); Glucose 141 mg/dL (74-106); Lipase 18 U/L (13-75); Potassium 3.7 mmol/L (3.5-5.1); Protein, Total 7.1 g/dL (6.4-8.2); Sodium Level 136 mmol/L (136-145); Troponin-I HS 5 pg/mL (3.0-78.0)
[2023-04-23 10:34] LABS: Lactic Acid 1.9 mmol/L (0.4-1.9)
[2023-04-23] MEDS: Activated Charcoal/Sorbitol 50 GM/240 ML BOT PO (10:37)
[2023-04-23] MEDS: Ondansetron 4 MG/2 ML Vial IV (10:43)
[2023-04-23 11:16] LABS: Acetaminophen (Tylenol) Level < 2.0 ug/mL (10.0-30.0); Alcohol, Blood (Medical)-Serum < 3.0 mg/dL; Salicylate < 1.7 mg/dL (2.8-20.0)
[2023-04-23 13:32] LABS: Bacteria 0 SEEN /hpf (None Seen); Mucous, Urine 0 SEEN /hpf (<or=2+); Squamous Epithelial Cells - UA 0 SEEN /hpf (0-5)
[2023-04-23 13:34] LABS: Color, Urine Yellow (Yellow); Glucose, Dipstick Normal (Normal); Ketone-Dipstick Negative (Negative); Leukocyte Esterase-Dipstick Negative /ul (Negative); Nitrite-Dipstick Negative (Negative); Occult Blood-Urine 10 /ul (Negative); Protein-Dipstick 30 mg/dl (Negative); Urine Bilirubin Dipstick Negative (Negative); Urine Clarity Clear (Clear); Urine Urobilinogen 1 mg/dl (Normal)
[2023-04-23 13:46] LABS: Red Blood Cells-Urine 0-5 SEEN /hpf (0-5); White Blood Cells 0-5 SEEN /hpf (0-5)
[2023-04-23 14:08] LABS: Amphetamine Urine VISTA NEGATIVE (<1000 ng/mL); Barbiturate Urine VISTA NEGATIVE (< 200 ng/mL); Benzodiazepine Urine VISTA NEGATIVE (< 200 ng/mL); Cocaine Urine VISTA NEGATIVE (< 300 ng/mL); Ecstacy Urine VISTA POSITIVE (< 500 ng/mL); Methadone Urine VISTA NEGATIVE (< 300 ng/mL); PCP Urine VISTA NEGATIVE (< 25 ng/mL); THC Urine VISTA POSITIVE (< 50 ng/mL); Vista UDS pH Range 6
--- NOTE | 2023-04-23 14:46 | NURSING ---
MED SURG OBS HUYNH INTENTIONAL OVERDOSE, SI
--- NOTE | 2023-04-23 15:09 | HP.PCM.HOS_ITS ---
HPI - General General Date of Admission: 04/23/23 Date of Service: 04/23/23 Chief Complaint: Suicide attempt HPI Narrative KHUSHBOO ROUSE, is a 32-year-old male with history of depression and anxiety presented to [facility] 04/23/2023 with an intentional overdose. He was fighting with his child's mother and took several handfuls of pills. He is unsure exactly what pills he took but does know that trazodone was among them, reportedly got the pills from [place] when he was admitted there 6 months ago for suicidal ideation. Ingestion took place 40 minutes prior to arrival so charcoal ordered. Patient tired in ED and has had some nausea and vomiting, reportedly took the pills in an attempt to end his life and endorses continued to feel suicidal. In ED drug screen positive for MDMA and THC though MDMA may be false positive for one of the medications he took. Patient resting comfortably but given unclear ingestion hospitalist contacted for admission to monitor. Patient evaluated at bedside and reports he took the pills earlier and notes the trazodone and said he thinks there were medicines for anxiety and depression but does not know which ones. Nausea slowly improving, reports overall he just feels exhausted, has no other specific or acute complaints. Verbalized understanding about admission and plans for crisis evaluation likely tomorrow if patient stable. [facility] Medical History Anxiety Depression Prediabetes Home Medications NK 04/23/23 [History Last Taken Unknown] Allergy/AdvReac Type Severity Reaction Status Date / Time No Known Allergies Allergy Verified 04/23/23 09:06 Social History Smoking Status: Never smoker alcohol intake: current alcohol intake frequency: a few times a month substance use type: marijuana ROS ROS Narrative General: Denies fever/chills, overall feels exhausted HENT: Slight headache, denies stuffy nose, denies sore throat EYES: Denies changes in vision Resp: Denies cough, denies shortness of breath Cardiac: Denies chest pain GI: Denies abdominal pain, denies changes in bowel, had some nausea and vomiting with improving : Denies changes in urination Extremity: Denies swelling MSK: Denies weakness Neuro: Denies any numbness/tingling Heme: Denies any bleeding or bruising Skin: Denies rashes Psychiatric: Attempted suicide Vital Signs Vital Signs Vital Signs: 04/23/23 08:56 04/23/23 10:32 04/23/23 13:00 Temperature 96.3 F L Temperature Source Temporal Pulse Rate 84 68 Respiratory Rate 15 16 18 Blood Pressure 124/86 H 116/78 Blood Pressure Mean 98 90 Pulse Ox 95 97 Oxygen Delivery Method Room Air Room Air 04/23/23 14:00 Temperature Temperature Source Pulse Rate Respiratory Rate 18 Blood Pressure Blood Pressure Mean Pulse Ox Oxygen Delivery Method Weight Weight: 67.2 kg Body Mass Index (BMI) 21.2 Physical Exam Narrative General: Wakes up easily and answers questions, appears tired but stays awake without difficulty HEENT: Atraumatic, normocephalic Eyes: Anicteric, normal conjunctiva, extraocular movements grossly intact Neck: Supple Respiratory: Clear to auscultation bilaterally, normal respiratory effort Cardiovascular: Regular rate and rhythm GI: Soft, nontender, nondistended Extremities: No edema Musculoskeletal: Moving all extremities Neuro: No overt focal neurological deficits Skin: No rashes appreciated Psych: Flat affect Results Lab / Micro Data 04/23/23 09:45 04/23/23 09:45 Labs: Laboratory Results - last 24 hr 04/23/23 09:45: WBC 8.6, RBC 5.19, Hgb 15.7, Hct 46.5, MCV 89.6, MCH 30.3, MCHC 33.8, RDW Std Deviation 39.7, RDW Coeff of Elliot 12.2, Plt Count 328, MPV 9.1, Immature Gran % (Auto) 0.400, Neut % (Auto) 69.3, Lymph % (Auto) 21.1, [place] % (Auto) 8.3, Eos % (Auto) 0.5, Baso % (Auto) 0.4, Absolute Neuts (auto) 6.0, Absolute Lymphs (auto) 1.81, Nucleated RBC % 0, PT 12.9, INR 1.0, APTT 27.6, Sodium 136, Potassium 3.7, Chloride 108 H, Carbon Dioxide 24.0, Anion Gap 4 L, BUN 21 H, Creatinine 1.03, Estim Creat Clear Calc 97.86, Est GFR (MDRD) Af Amer 107, Est GFR (MDRD) Non-Af 89, BUN/Creatinine Ratio 20.4 H, Glucose 141 H, Lactic Acid 1.9, Calcium 9.1, Total Bilirubin 0.80, Direct Bilirubin 0.19, AST 13 L, ALT 16, Alkaline Phosphatase 70, Troponin I High Sens 5, Total Protein 7.1, Albumin 3.9, Globulin 3.2, Lipase 18, Salicylates < 1.7 L, Acetaminophen < 2.0 L, Ethyl Alcohol < 3.0 04/23/23 13:19: Urine Color Yellow, Urine Clarity Clear, Urine pH 6.0, Ur Specific [place] 1.020, Urine Protein 30 H, Urine Glucose (UA) Normal, Urine Ketones Negative, Urine Occult Blood 10 H, Urine Nitrite Negative, Urine Bilirubin Negative, Urine Urobilinogen 1 H, Ur Leukocyte Esterase Negative, Urine RBC 0-5 SEEN, Urine WBC 0-5 SEEN, Ur Squamous Epith Cells 0 SEEN, Urine Bacteria 0 SEEN, Urine Mucus 0 SEEN, Urine Opiates Screen NEGATIVE, Urine Methadone Screen NEGATIVE, Ur Barbiturates Screen NEGATIVE, Ur Phencyclidine Scrn NEGATIVE, Ur Amphetamines Screen NEGATIVE, MDMA (Ecstasy) Screen POSITIVE H , U Benzodiazepines Scrn NEGATIVE, Urine Cocaine Screen NEGATIVE, U Cannabinoids Screen POSITIVE H, Ur Drug Screen Comment ABG Data ABG results: ABG 04/23/23 10:15 Specimen Type ART Sample Site L Radial pH 7.40 Bicarbonate Actual 24.6 Total CO2 26 Base Excess 0 O2 Saturation 99 ABG pCO2 39.9 ABG pO2 124 H O2 Delivery Device Room Air Vent Mode Not entered Assessment & Plan Assessment/Plan (1) Suicide attempt: PLAN: Plan # Suicide attempt via ingestion -Reportedly took several handfuls of unidentified medications and only knows that some of them were trazodone -Received charcoal -Vitally stable however given unclear amount and type of medicine the patient ingested it is reasonable to monitor in hospital prior to considering placement -Tylenol and salicylate negative, alcohol negative -UDS THC and MDMA though MDMA may be false positive for one of the medications he ingested but it is unclear -Patient denies any illicit drug use or tobacco use and said he drinks occas ionally smokes marijuana occasionally -Will monitor and if patient stable will need crisis to see tomorrow to discuss possible placement #DVT ppx: Low risk, ambulatory Emily Hernandez MD Charges/Coding Visit Charges Inpatient E&M: 54811 Init Hosp L1
[2023-04-23] MEDS: 0.9% Normal Saline (1000mL) 1,000 ML 75 ML IV (18:26)
[2023-04-23] MEDS: Acetaminophen 325 MG Tablet 650 MG PO (18:30)
[2023-04-24] MEDS: Acetaminophen 325 MG Tablet 650 MG PO (00:30)
[2023-04-24 03:00] VITALS: BP 104/68; PULSE 57; RESP 14; TEMP 36.2; O2SAT 98
[2023-04-24 07:56] LABS: Absolute Lymphocyte Count 1.57 X10^3/uL (0.83-4.51); Absolute Neutrophil Count 5.3 X10^3/uL (2.0-7.7); Basophil# 0.03 X10^3/uL; Basophil% 0.4 % (0-1); Eosinophil# 0.03 X10^3/uL; Eosinophils% 0.4 % (0-5); Hematocrit 43.7 % (40-54); Hemoglobin 14.6 g/dL (13.0-16.5); Lymphocyte # 1.57 X10^3/ul (0.83-4.51); Lymphocyte % 20.6 % (19-41); Mean Corp Hgb Conc 33.4 g/dL (32-36); Mean Corpuscular Hgb 29.9 pg (27.0-32.0); Mean Corpuscular Volume 89.5 fL (80-94); Mean Platelet Vol. 9.1 fl (6.2-12.0); Monocyte# 0.68 X10^3/uL; Monocyte% 8.9 % (0-10); NRBC Flagged by Analyzer 0 % (0-5); Neutrophil # 5.27 X10^3/uL (2.7-7.7); Neutrophil % 69.3 % (47-70); Platelet Count 311 K/mm3 (150-450); RBC Distribution Width CV 12.2 % (11.6-14.6); Red Blood Count 4.88 M/mm3 (4.6-6.2); White Blood Count 7.6 K/mm3 (4.4-11.0)
[2023-04-24 08:43] LABS: ALB/GLOB Ratio 1.2 RATIO (0.9-2.4); AST(SGOT) 10 U/L (15-37); Alanine Aminotransfer ALT/SGPT 15 U/L (16-61); Albumin, Serum 3.5 g/dL (3.2-5.0); Alkaline Phosphatase 62 U/L (45-117); Anion Gap 3 (5-15); BUN 15 mg/dL (7-18); BUN/Creat Ratio 15.6 RATIO (10-20); Calcium,Total 8.7 mg/dL (8.5-10.1); Chloride 110 mmol/L (98-107); Creatinine, Serum 0.96 mg/dL (0.70-1.30); EST Glomerular Filtration Rate 96 mL/min (>60); Est Glom Filt Rate - Afr Amer 116 mL/min (>60); Estimated Creatinine Clearance 99.06 ml/min; Globulin 2.8 g/dL (2.2-4.2); Glucose 111 mg/dL (74-106); Magnesium 2.6 mg/dL (1.6-2.6); Potassium 4.1 mmol/L (3.5-5.1); Protein, Total 6.3 g/dL (6.4-8.2); Sodium Level 139 mmol/L (136-145); Thyroid Stim Hormone (TSH) 0.64 uIU/mL (0.358-3.74)
--- NOTE | 2023-04-24 09:03 | CASEMGMT ---
Per RN physician said patient is medically cleared for crisis evaluation. SW faxed clinicals to crisis. SW also called crisis and made a referral. Susan DOZIER
[2023-04-24 09:05] VITALS: BP 117/81; PULSE 70; RESP 16; TEMP 36.9; O2SAT 100
--- NOTE | 2023-04-24 15:25 | PCM.PN.HOSP ---
Reason for Visit Reason for Visit: Diagnoses Suicide attempt, initial encounter (04/24/23) Subjective Subjective Patient was seen and examined today, he is alert and oriented x 3 and does not appear to be sleepy. I talked to crisis services who are in the room at the time my examination. It appears the patient took an unknown quality of trazodone 50 mg, hydroxyzine 25 mg, Remeron 45 mg and Lexapro 40 mg. Objective Data Objective Data Vital Signs: Vital Signs Temp Pulse Resp BP Pulse Ox O2 Del Method 98.4 F 70 16 117/81 H 100 Room Air 04/24/23 09:05 04/24/23 09:05 04/24/23 09:05 04/24/23 09:05 04/24/23 09:05 04/24/23 09:05 Oxygen Delivery Method Room Air Weight: 63.4 kg Body Mass Index (BMI) 20.0 Intake & Output: Intake and Output for Last 24 Hours 04/22/23 04/23/23 04/24/23 23:59 23:59 23:59 Intake Total 220 / 220 1450 / 1450 Balance 220 / 220 1450 / 1450 Lab / Micro Data 04/24/23 07:40 04/24/23 07:40 Labs: Laboratory Results - last 24 hr 04/24/23 07:40: WBC 7.6, RBC 4.88, Hgb 14.6, Hct 43.7, MCV 89.5, MCH 29.9, MCHC 33.4, RDW Std Deviation 40.0, RDW Coeff of Elliot 12.2, Plt Count 311, MPV 9.1, Immature Gran % (Auto) 0.400, Neut % (Auto) 69.3, Lymph % (Auto) 20.6, [place] % (Auto) 8.9, Eos % (Auto) 0.4, Baso % (Auto) 0.4, Absolute Neuts (auto) 5.3, Absolute Lymphs (auto) 1.57, Nucleated RBC % 0, Sodium 139, Potassium 4.1, Chloride 110 H, Carbon Dioxide 26.0, Anion Gap 3 L, BUN 15, Creatinine 0.96, Estim Creat Clear Calc 99.06, Est GFR (MDRD) Af Amer 116, Est GFR (MDRD) Non-Af 96, BUN/Creatinine Ratio 15.6, Glucose 111 H, Calcium 8.7, Magnesium 2.6, Total Bilirubin 0.60, AST 10 L, ALT 15 L, Alkaline Phosphatase 62, Total Protein 6.3 L, Albumin 3.5, Globulin 2.8, Albumin/Globulin Ratio 1.2, TSH 0.64 Physical Exam Const alert, oriented x3, no apparent distress, average body habitus and healthy appearing General Appearance: cooperative, well kempt and well developed Orientation / Consciousness: awake, oriented to person, oriented to place and oriented to time HEENT normocephalic, head/scalp atraumatic and moist oral mucous membranes Eyes PERRL, EOMs intact bilaterally and conjunctivae normal Neck supple, no JVD, thyroid normal and no carotid bruits General: trachea midline Resp normal respiratory effort, no retractions, no use of accessory muscles and clear to auscultation bilaterally Auscultation: Negative for rales, rhonchi or wheezes Cardio regular rate, regular rhythm, S1 normal heart sound, S2 normal heart sound, no murmurs, no rub and no gallops GI normal to inspection, nondistended, normoactive bowel sounds, soft to palpation, non-tender and non-distended Extremity no clubbing, cyanosis or edema Skin no rashes or lesions noted General Skin Exam: no breakdown Neuro oriented x3, CN's II-XII intact bilaterally, no focal motor deficits and no sensory deficits noted Sensorium / Orientation: awake, alert, oriented to person, oriented to place and oriented to time Speech: speech normal Psych affect normal Assessment & Plan Assessment/Plan (1) Suicide attempt: PLAN: Plan 1. Intentional drug overdose-suicide attempt-patient appears medically stable at this time, he is alert and appropriate, he does not appear anxious or agitated. Crisis services will place him in a psych facility for further inpatient care. #2 major depression-complicates care, medical course, recovery and prognosis Charges/Coding Visit Charges Inpatient E&M: 88192 Subs Hosp L1
[2023-04-24 15:30] VITALS: BP 114/82; PULSE 82; RESP 16; TEMP 36.9; O2SAT 100
--- NOTE | 2023-04-24 16:35 | DS.PCM_ITS ---
Providers Date of Admission: 04/24/23 Date of Discharge: 04/24/23 Primary Care Physician: Dr. Nikolay Johnson MD Reason For Visit: INTENTIONAL OVERDOSE Diagnosis Discharge Diagnosis (1) Suicide attempt: Status: Acute Code(s): T14.91XA - Suicide attempt, initial encounter Plan 1. Intentional drug overdose-suicide attempt-patient appears medically stable at this time, he is alert and appropriate, he does not appear anxious or agitated. Crisis services will place him in a psych facility for further inpatient care. #2 major depression-complicates care, medical course, recovery and prognosis Medications at Discharge Home Medications escitalopram oxalate 20 mg tablet (Lexapro) 20 mg PO DAILY Depression and Anxiety 04/24/23 hydroxyzine HCl 25 mg tablet 25 mg PO Q6H PRN Anxiety 04/24/23 mirtazapine 45 mg tablet 45 mg PO QHS Depression 04/24/23 trazodone 50 mg tablet 50 mg PO QHS PRN sleep 04/24/23 Hospital Course Operations None Procedures None Summary of Care Provided Minutes Spent on Discharge: 30 Hospital Course: This 32-year-old white male was seen in the emergency room at [facility] after taking an unknown amount of hydroxyzine, trazodone, Lexapro, and Remeron in an attempt to kill himself. Patient had a recent psychiatric inpatient stay for previous suicide attempt. Patient has a history of major depression. Patient was admitted to PCU in stable condition, he had no ill effects from the ingestion of the medications and he was seen by crisis services, he was deemed medically stable for transfer to an inpatient psych facility, a facility in [facility] ([place]) agreed to take the patient and had a bed. On 04/24/2023, patient was seen and examined: On examination he appeared in good health and spirits. Vital signs as documented. Skin warm and dry and without overt rashes. Neck without JVD, neck was supple, trachea midline, thyroid was normal. Lungs clear bilaterally, normal air movement was noted. Heart exam notable for regular rhythm, normal sounds and absence of murmurs, rubs or gallops. Abdomen unremarkable and without evidence of organomegaly, masses, or abdominal aortic enlargement. Bowel sounds are present, abdomen is not distended. Extremities nonedematous, no cyanosis was noted, no clubbing was noted. Neuro: Cranial nerves II through XII are grossly intact, no focal motor deficits were noted, sensation to light touch and pinprick intact, motor exam 5/5 throughout. Psych: Patient is alert and oriented x3, he does not appear anxious or depressed, he does not appear agitated. Patient appears stable for discharge to an inpatient psychiatric facility for further treatment on 04/24/2023. Weight / BMI Weight Weight: 63.4 kg Body Mass Index (BMI) 20.0 ABG / Lab / Microbiology Data 04/24/23 07:40 04/24/23 07:40 Laboratory: Laboratory Results - last 24 hr 04/24/23 07:40: WBC 7.6, RBC 4.88, Hgb 14.6, Hct 43.7, MCV 89.5, MCH 29.9, MCHC 33.4, RDW Std Deviation 40.0, RDW Coeff of Elliot 12.2, Plt Count 311, MPV 9.1, Immature Gran % (Auto) 0.400, Neut % (Auto) 69.3, Lymph % (Auto) 20.6, [place] % (Auto) 8.9, Eos % (Auto) 0.4, Baso % (Auto) 0.4, Absolute Neuts (auto) 5.3, Absolute Lymphs (auto) 1.57, Nucleated RBC % 0, Sodium 139, Potassium 4.1, Chloride 110 H, Carbon Dioxide 26.0, Anion Gap 3 L, BUN 15, Creatinine 0.96, Estim Creat Clear Calc 99.06, Est GFR (MDRD) Af Amer 116, Est GFR (MDRD) Non-Af 96, BUN/Creatinine Ratio 15.6, Glucose 111 H, Calcium 8.7, Magnesium 2.6, Total Bilirubin 0.60, AST 10 L, ALT 15 L, Alkaline Phosphatase 62, Total Protein 6.3 L , Albumin 3.5, Globulin 2.8, Albumin/Globulin Ratio 1.2, TSH 0.64 Meaningful Use Info Meaningful Use Diagnoses (Choose all that apply): None applicable Discharge Plan Admission Admit Date/Time: 04/24/23 14:55 Attending Provider: Bandar Montero Primary Care Provider: Nikolay Johnson Consulting Providers: Emily Hernandez Discharge Orders/Prescriptions Prescriptions: No Action trazodone 50 mg tablet 50 mg PO QHS PRN (Reason: sleep) hydroxyzine HCl 25 mg tablet 25 mg PO Q6H PRN (Reason: Anxiety) mirtazapine 45 mg tablet 45 mg PO QHS escitalopram oxalate [Lexapro] 20 mg tablet 20 mg PO DAILY Referrals / Follow Up: Nikolay Johnson MD [Primary Care Provider] - Disposition Discharge Orders: Discharge Patient (Routine); Ordered 04/24/23 Ordered By: Dr. Bandar Monetro Charges/Coding Visit Charges Inpatient E&M: 63020 Disch Hosp
[2023-04-24 20:32] VITALS: BP 118/85; PULSE 70; RESP 16; TEMP 36.7; O2SAT 97
[2023-04-25 04:56] VITALS: BP 118/89; PULSE 66; RESP 18; TEMP 36.6; O2SAT 99
[2023-04-25] MEDS: Acetaminophen 325 MG Tablet 650 MG PO (05:07)
[2023-04-25 07:34] VITALS: BP 117/87; PULSE 67; RESP 14; TEMP 36.8; O2SAT 100
--- NOTE | 2023-04-25 08:18 | NURSING ---
0818 Report called to Nurse Fátima @ [facility] in [place]
== END 2023-04-25 09:56 | DRG 918 ==
LOC: ED 15:00 → PCU 15:56
PROVIDERS: Admitting Provider Internal Medicine; Emergency Provider Emergency Medicine; PCP Internal Medicine; Visit Provider Internal Medicine
DX: T43.212A Poisoning by selective serotonin and norepinephrine reuptake inhibitors, intentional self-harm, initial encounter (principal); F32.9 Major depressive disorder, single episode, unspecified; T45.0X2A Poisoning by antiallergic and antiemetic drugs, intentional self-harm, initial encounter; T43.022A Poisoning by tetracyclic antidepressants, intentional self-harm, initial encounter; T43.222A Poisoning by selective serotonin reuptake inhibitors, intentional self-harm, initial encounter; R11.2 Nausea with vomiting, unspecified; F41.9 Anxiety disorder, unspecified; R73.03 Prediabetes; Z79.899 Other long term (current) drug therapy; Z91.51 Personal history of suicidal behavior
CPT/HCPCS: 36415; 36600; 80048; 80053; 80076; 80307; 80320; 80329; 81001; 82803; 83605; 83690; 83735; 84443; 84484; 85025; 85610; 85730; 93005; 99285; J7030; A4216; G0480; J2405

== ENCOUNTER 2023-07-07 08:47 | Emergency (ER) | payer BC, SELFPAY ==
[2023-07-07 08:48] VITALS: BP 125/100; PULSE 85; RESP 16; TEMP 36.2; O2SAT 100; BMI 20.5
--- NOTE | 2023-07-07 09:04 | EDS_ITS ---
HPI HPI - Psych History of Present Illness Chief Complaint: Suicidal Informant: patient Onset/Context/Timing Onset: Today Context: Sudden Onset Timing: Continuous Worsened by: Situational factors Relieved by: Nothing Associated Symptoms Associated Symptoms - Psych: Positive for Depressed; Negative for Suicidal Thoughts, Paranoia, Visual Hallucinations or Auditory Hallucinations Narrative Narrative: Patient presents with depression and I am going to have a mental breakdown that became worse today. Patient states that he tried to remove himself from the situation so that he would not harm himself. Currently, patient denies any suicidal or homicidal ideation. Patient states he has been feeling depressed. Patient denies any paranoid ideations. Patient denies any visual or auditory hallucinations. Patient states I do not want to get into the details of the situation. PFSH PFSH Medical History Anxiety Depression Migraines Non-smoker Prediabetes Home Medications escitalopram oxalate 20 mg tablet (Lexapro) 20 mg PO DAILY Depression and Anxiety 04/24/23 [History Last Taken Unknown] hydroxyzine HCl 25 mg tablet 25 mg PO Q6H PRN Anxiety 04/24/23 [History Last Taken Unknown] mirtazapine 45 mg tablet 45 mg PO QHS Depression 04/24/23 [History Last Taken Unknown] trazodone 50 mg tablet 50 mg PO QHS PRN sleep 04/24/23 [History Last Taken Unknown] Allergy/AdvReac Type Severity Reaction Status Date / Time shellfish derived Allergy Severe Swelling Verified 07/07/23 08:48 Surgical History no surgical history no surgical history Social History Smoking Status: Never smoker alcohol intake: current alcohol intake frequency: a few times a month substance use type: marijuana ROS ROS ED Constitutional Constitutional ED: Denies chills or fever(s) Eyes Eyes: Denies blurry vision or change in vision ENT ENT ED: Denies rhinorrhea or sore throat Cardiovascular Cardiovascular: Denies chest pain or palpitations Respiratory/Chest Respiratory/Chest: Denies cough or dyspnea Gastrointestinal Gastrointestinal: Denies nausea or vomiting Genitourinary Genitourinary ED: Denies dysuria or hematuria Musculoskeletal Musculoskeletal: Reports neck pain; Denies back pain Integumentary Denies abscess or rash Neurologic Neurologic: Denies headache(s) or weakness Psychiatric Psychiatric: Reports depression; Denies suicidal ideation or suicidal thoughts Allergic/Immunologic Allergic/Immunologic ED: Denies mouth swelling or urticaria EXAM Physical Exam Const Vital Signs: 07/07/23 08:48 Temperature 97.2 F L Temperature Source Temporal Pulse Rate 85 Respiratory Rate 16 Blood Pressure 125/100 H Blood Pressure Mean 108 Pulse Ox 100 Oxygen Delivery Method Room Air Positive well nourished and well developed General Appearance ED: well developed and NAD HEENT Reports moist mucous membranes Neck supple and no JVD Resp normal respiratory effort and clear to auscultation bilaterally Cardio Rate: regular rate Rhythm: regular rhythm GI non-tender and non-distended Palpation: soft Neuro oriented x3, CN's II-XII intact bilaterally and no sensory deficits noted Michelle Coma Scale: document GCS findings Spontaneous Obeys Commands Oriented 15 Sensorium / Orientation: alert Motor Exam: strength 5/5 throughout Psych Appearance: grossly normal Attitude: withdrawn Activity / Motor Behavior: avoids eye contact Speech: slow and soft Mood & Affect: depressed and flat affect Thought Content: No suicidality, No homicidality, No delusion(s) and No hallucination(s) MDM MDM MDM Narrative Medical decision making narrative: Medical screening labs will be obtained. CBC will be obtained to assess for leukocytosis and anemia. Basic metabolic profile will be obtained to assess for electrolyte abnormality and renal function. Serum alcohol level will be obtained to assess for alcohol intoxication. Urine tox screen will be obtained to assess for substance abuse. Lab Data Attestation: I reviewed the patient's lab results. Lab results narrative: CBC was reviewed and was within normal limits. Basic metabolic profile was reviewed and was within normal limits. Urine tox screen was reviewed and was positive for cannabinoids. Serum alcohol level was reviewed and was normal at less than 3.0. Labs: Laboratory Results - last 24 hr 07/07/23 09:15 WBC 8.1 RBC 4.83 Hgb 14.9 Hct 43.0 MCV 89.0 MCH 30.8 MCHC 34.7 RDW Std Deviation 40.3 RDW Coeff of Elliot 12.3 Plt Count 294 MPV 9.2 Immature Gran % (Auto) 0.400 Neut % (Auto) 68.3 Lymph % (Auto) 22.7 [place] % (Auto) 7.5 Eos % (Auto) 0.5 Baso % (Auto) 0.6 Absolute Neuts (auto) 5.6 Absolute Lymphs (auto) 1.84 Nucleated RBC % 0 Sodium 137 Potassium 3.4 L Chloride 105 Carbon Dioxide 26.0 Anion Gap 6 BUN 30 H Creatinine 0.91 Estim Creat Clear Calc 106.92 Est GFR (MDRD) Af Amer 124 Est GFR (MDRD) Non-Af 102 BUN/Creatinine Ratio 33.0 H Glucose 108 H Calcium 9.0 Urine Opiates Screen NEGATIVE Urine Methadone Screen NEGATIVE Ur Barbiturates Screen NEGATIVE Ur Phencyclidine Scrn NEGATIVE Ur Amphetamines Screen NEGATIVE MDMA (Ecstasy) Screen NEGATIVE U Benzodiazepines Scrn NEGATIVE Urine Cocaine Screen NEGATIVE U Cannabinoids Screen POSITIVE H Ur Drug Screen Comment Ethyl Alcohol < 3.0 Treatment and Re-Evaluation Narrative: Crisis was in to evaluate the patient. Crisis felt that the patient could be safety planned at home. Patient is having good insight and judgment. Patient does have an appoint with crisis in August. Crisis counselor also make a referral for IOP. Patient was instructed to return if worse in any way. Patient understood and was agreeable with the plan. All questions were answered. Discharge Plan Triage Chief Complaint: Suicidal ED Provider: Kalen Bird Dx/Rx/DC Orders Clinical Impression: Depression, Marijuana use Instructions: ED Depression Prescriptions: No Action trazodone 50 mg tablet 50 mg PO QHS PRN (Reason: sleep) hydroxyzine HCl 25 mg tablet 25 mg PO Q6H PRN (Reason: Anxiety) mirtazapine 45 mg tablet 45 mg PO QHS escitalopram oxalate [Lexapro] 20 mg tablet 20 mg PO DAILY Primary Care Provider: Nikolay Johnson Referrals: Counseling,Center [Group of Physicians] - Keep Kyleigh appointment Nikolay Johnson MD [Primary Care Provider] - 5-7 Days Disposition Disposition: Home, Self Care
[2023-07-07 09:50] LABS: Absolute Lymphocyte Count 1.84 X10^3/uL (0.83-4.51); Absolute Neutrophil Count 5.6 X10^3/uL (2.0-7.7); Basophil# 0.05 X10^3/uL; Basophil% 0.6 % (0-1); Eosinophil# 0.04 X10^3/uL; Eosinophils% 0.5 % (0-5); Hemoglobin 14.9 g/dL (13.0-16.5); Lymphocyte # 1.84 X10^3/ul (0.83-4.51); Lymphocyte % 22.7 % (19-41); Mean Corp Hgb Conc 34.7 g/dL (32-36); Mean Corpuscular Hgb 30.8 pg (27.0-32.0); Mean Platelet Vol. 9.2 fl (6.2-12.0); Monocyte# 0.61 X10^3/uL; Monocyte% 7.5 % (0-10); NRBC Flagged by Analyzer 0 % (0-5); Neutrophil # 5.55 X10^3/uL (2.7-7.7); Neutrophil % 68.3 % (47-70); Platelet Count 294 K/mm3 (150-450); RBC Distribution Width CV 12.3 % (11.6-14.6); RBC Distribution Width SD 40.3 fl (35.1-43.9); Red Blood Count 4.83 M/mm3 (4.6-6.2); White Blood Count 8.1 K/mm3 (4.4-11.0)
[2023-07-07 10:05] LABS: Amphetamine Urine VISTA NEGATIVE (<1000 ng/mL); Barbiturate Urine VISTA NEGATIVE (< 200 ng/mL); Benzodiazepine Urine VISTA NEGATIVE (< 200 ng/mL); Cocaine Urine VISTA NEGATIVE (< 300 ng/mL); Ecstacy Urine VISTA NEGATIVE (< 500 ng/mL); Methadone Urine VISTA NEGATIVE (< 300 ng/mL); PCP Urine VISTA NEGATIVE (< 25 ng/mL); THC Urine VISTA POSITIVE (< 50 ng/mL); Vista UDS pH Range 6
[2023-07-07 10:06] LABS: Anion Gap 6 (5-15); BUN 30 mg/dL (7-18); Chloride 105 mmol/L (98-107); Creatinine, Serum 0.91 mg/dL (0.70-1.30); EST Glomerular Filtration Rate 102 mL/min (>60); Est Glom Filt Rate - Afr Amer 124 mL/min (>60); Estimated Creatinine Clearance 106.92 ml/min; Glucose 108 mg/dL (74-106); Potassium 3.4 mmol/L (3.5-5.1); Sodium Level 137 mmol/L (136-145)
[2023-07-07 10:28] LABS: Alcohol, Blood (Medical)-Serum < 3.0 mg/dL
[2023-07-07 12:36] VITALS: BP 137/73; PULSE 87; RESP 16; TEMP 36.9; O2SAT 99
== END 2023-07-07 12:56 | disposition home or self-care (01) ==
PROVIDERS: Emergency Provider Emergency Medicine; PCP Internal Medicine; Visit Provider Emergency Medicine
DX: F32.A Depression, unspecified (principal); R45.851 Suicidal ideations; F41.9 Anxiety disorder, unspecified; Z79.899 Other long term (current) drug therapy; R73.03 Prediabetes; F12.90 Cannabis use, unspecified, uncomplicated
CPT/HCPCS: 36415; 80048; 80307; 80320; 85025; 99284; G0480

== ENCOUNTER 2023-08-11 14:07 | Emergency (ER) | payer BC, SELFPAY ==
[2023-08-11 14:09] VITALS: BP 106/80; PULSE 91; RESP 18; TEMP 36.6; O2SAT 97; BMI 20.5
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
== END 2023-08-11 15:52 | disposition home or self-care (01) ==
PROVIDERS: Emergency Provider Emergency Medicine; PCP Internal Medicine; Visit Provider Emergency Medicine
DX: S06.0X0A Concussion without loss of consciousness, initial encounter (principal); F32.A Depression, unspecified; F41.9 Anxiety disorder, unspecified; Y92.838 Other recreation area as the place of occurrence of the external cause; Y93.82 Activity, spectator at an event; W22.8XXA Striking against or struck by other objects, initial encounter
CPT/HCPCS: 99282

== ENCOUNTER 2023-09-29 00:29 | Emergency (ER) | payer BC, SELFPAY ==
[2023-09-29 00:30] VITALS: BP 120/80; PULSE 88; RESP 18; TEMP 36.7; O2SAT 95; BMI 20.6
--- NOTE | 2023-09-29 01:04 | EX.ED.GUMALE ---
HPI History of Present Illness Chief Complaint: Male Pain/Injury Informant: patient Narrative Narrative: Patient is a 32-year-old male with past medical history of migraines and anxiety/depression. He states that multiple [place] was diagnosed with a cyst on his left testicle. He states has been no trauma but over the last 1 to 2 weeks has been having increased pain in the left upper testicle. He states he has been with the same partner for multiple years now with low concern for STD and also reports that there has been no penile discharge or dysuria or hematuria. However because his pain has been slowly worsening since its onset he has concerned that there may be a potential infection or change to the previous cyst and comes in for evaluation [facility] Medical History Non-smoker Migraines Depression Anxiety Prediabetes Home Medications ?Medication ?Instructions ?Recorded ?Last Taken ?Type escitalopram oxalate 20 mg tablet 20 mg PO DAILY Depression and 04/24/23 Unknown History (Lexapro) Anxiety hydroxyzine HCl 25 mg tablet 25 mg PO Q6H PRN Anxiety 04/24/23 Unknown History mirtazapine 45 mg tablet 45 mg PO QHS Depression 04/24/23 Unknown History trazodone 50 mg tablet 50 mg PO QHS PRN sleep 04/24/23 Unknown History doxycycline hyclate 100 mg capsule 100 mg PO BID 14 days #28 caps 09/29/23 Unknown Rx oxycodone-acetaminophen 5 mg-325 1 tab PO Q6H PRN pain 3 days #12 09/29/23 Unknown Rx mg tablet (Percocet) tabs Allergy/AdvReac Type Severity Reaction Status Date / Time shellfish derived Allergy Severe Swelling Verified 09/29/23 00:32 Social History Smoking Status: Never smoker alcohol intake: current alcohol intake frequency: a few times a month substance use type: marijuana ROS ROS ED Constitutional Constitutional ED: Denies chills or fever(s) ENT ENT ED: Denies sore throat Cardiovascular Cardiovascular: Denies chest pain Respiratory/Chest Respiratory/Chest: Denies cough or dyspnea Gastrointestinal Gastrointestinal: Denies abdominal pain, diarrhea, nausea or vomiting Genitourinary Genitourinary ED: Reports other Details: Positive left testicular pain ; Denies dysuria, hematuria or urinary frequency Musculoskeletal Musculoskeletal: Denies back pain or myalgias Integumentary Denies rash Neurologic Neurologic: Denies headache(s) Hematologic/Lymphatic Hematologic/Lymphatic: Denies easy bleeding or easy bruising EXAM Physical Exam Const Vital Signs: 09/29/23 00:30 09/29/23 01:18 Temperature 98.1 F 98.4 F Temperature Source Oral Pulse Rate 88 71 Respiratory Rate 18 16 Blood Pressure 120/80 112/74 Blood Pressure Mean 93 86 Pulse Ox 95 95 Oxygen Delivery Method Room Air Positive well nourished and well developed General Appearance ED: well developed HEENT HEENT Narrative: Normocephalic atraumatic Eyes PERRL and EOMs intact bilaterally General Eye ED: Negative for scleral icterus Neck supple Resp normal respiratory effort and clear to auscultation bilaterally Cardio regular rate and regular rhythm GI non-tender, non-distended and no masses Auscultation: normoactive bowel sounds Palpation: soft Narrative: Normal uncircumcised male without blood or discharge from the urethral meatus. No testicular masses or swelling noted. No overlying erythema or warmth. No secondary findings to suggest Micheal's gangrene. The testicle was not held in an abnormal position. There is no obvious direct or indirect hernia noted. Patient does have pain with palpation of the left testicle mainly in the left upper posterior section Cremasteric reflex is intact Extremity normal to inspection Neuro oriented x3 and CN's II-XII intact bilaterally Sensorium / Orientation: alert Psych mental status grossly normal Skin no rashes or lesions noted MDM MDM MDM Narrative Medical decision making narrative: Patient arrived to the ER with stable vitals and reported pain in the been slowly worsening over the past 1 to 2 weeks. There is no report or signs of trauma. Differential diagnosis is for kidney stone versus UTI versus pyelonephritis versus hernia versus epididymitis versus STD. Patient denied any dysuria he also denied any concern for STD and denies penile discharge therefore a gonorrhea and chlamydia test was not obtained. He denies hematuria and there is no CVA pain going against kidney stone. By exam there is no obvious direct or indirect hernia. As the location of his pain is most consistent with epididymitis he will be treated with doxycycline for this. In order to ensure that there is no new cyst formation or lack of blood flow or hydrocele # varicocele a outpatient testicular ultrasound will be performed as well. However at this time as his history and exam is most consistent with epididymitis there is no need for further workup and he is otherwise safe for discharge History & Record Review Discussion w/independent historian: Patient Discharge Plan Triage Chief Complaint: Male Pain/Injury ED Provider: Sam Prabhakar Dx/Rx/DC Orders Clinical Impression: Acute epididymitis Instructions: ED Epididymitis Prescriptions: New doxycycline hyclate 100 mg capsule 100 mg PO BID 14 Days Qty: 28 0RF oxycodone-acetaminophen [Percocet] 5-325 mg tablet 1 tab PO Q6H PRN (Reason: pain) 3 Days Qty: 12 0RF No Action trazodone 50 mg tablet 50 mg PO QHS PRN (Reason: sleep) hydroxyzine HCl 25 mg tablet 25 mg PO Q6H PRN (Reason: Anxiety) mirtazapine 45 mg tablet 45 mg PO QHS escitalopram oxalate [Lexapro] 20 mg tablet 20 mg PO DAILY Other Ambulatory Orders: Testicular with Arterial Flow (Routine) Facility: [facility] - Location: [facility] Ordered By: Dr. Sam Prabhakar Primary Care Provider: Nikolay Johnson Referrals: Nikolay Johnson MD [Primary Care Provider] - Activity Restrictions/Additional Instructions: Your history and exam is most consistent with inflammation or infection of your epididymis known as epididymitis. Take the antibiotic as directed to help resolve symptoms and please obtain your outpatient ultrasound to further assess the testicular structures and potential cause of your pain. Return to the ER should you have any further concerns Print Language: Korean Disposition Disposition: Home, Self Care Discharge Date/Time: 09/29/23 01:45
[2023-09-29 01:18] VITALS: BP 112/74; PULSE 71; RESP 16; TEMP 36.9; O2SAT 95
[2023-09-29] MEDS: Doxycycline 100 MG CAPSULE PO (01:19)
[2023-09-29] MEDS: oxyCODONE 5 MG Tablet 10 MG PO (01:19)
[2023-09-29] MEDS: Ceftriaxone 500 MG Vial IM (01:27)
== END 2023-09-29 01:45 | disposition home or self-care (01) ==
PROVIDERS: Emergency Provider Emergency Medicine; PCP Internal Medicine; Visit Provider Emergency Medicine
DX: N45.1 Epididymitis (principal); F41.9 Anxiety disorder, unspecified; F32.A Depression, unspecified
CPT/HCPCS: 96372; 99283

== ENCOUNTER 2023-10-01 11:47 | Emergency (ER) | payer BC, SELFPAY ==
[2023-10-01 11:48] VITALS: BP 116/84; PULSE 98; RESP 16; TEMP 36.2; O2SAT 94; BMI 20.1
[2023-10-01 12:27] LABS: Absolute Lymphocyte Count 1.88 X10^3/uL (0.83-4.51); Absolute Neutrophil Count 4.9 X10^3/uL (2.0-7.7); Basophil# 0.05 X10^3/uL; Basophil% 0.6 % (0-1); Eosinophil# 0.07 X10^3/uL; Eosinophils% 0.9 % (0-5); Hematocrit 41.7 % (40-54); Hemoglobin 14.4 g/dL (13.0-16.5); Lymphocyte # 1.88 X10^3/ul (0.83-4.51); Lymphocyte % 24.4 % (19-41); Mean Corp Hgb Conc 34.5 g/dL (32-36); Mean Corpuscular Hgb 29.9 pg (27.0-32.0); Mean Corpuscular Volume 86.5 fL (80-94); Monocyte# 0.76 X10^3/uL; Monocyte% 9.9 % (0-10); NRBC Flagged by Analyzer 0 % (0-5); Neutrophil # 4.92 X10^3/uL (2.7-7.7); Neutrophil % 63.8 % (47-70); Platelet Count 300 K/mm3 (150-450); RBC Distribution Width CV 12.3 % (11.6-14.6); Red Blood Count 4.82 M/mm3 (4.6-6.2); White Blood Count 7.7 K/mm3 (4.4-11.0)
[2023-10-01 12:40] LABS: Anion Gap 4 (5-15); BUN 20 mg/dL (7-18); BUN/Creat Ratio 19.4 RATIO (10-20); Chloride 105 mmol/L (98-107); Creatinine, Serum 1.03 mg/dL (0.70-1.30); EST Glomerular Filtration Rate 89 mL/min (>60); Est Glom Filt Rate - Afr Amer 107 mL/min (>60); Estimated Creatinine Clearance 92.74 ml/min; Glucose 100 mg/dL (74-106); Potassium 3.4 mmol/L (3.5-5.1); Sodium Level 137 mmol/L (136-145)
[2023-10-01 12:47] VITALS: BP 116/78; PULSE 90; RESP 14; O2SAT 99
--- NOTE | 2023-10-01 12:53 | EDS_ITS ---
HPI HPI - Psych History of Present Illness Chief Complaint: Suicidal Informant: patient Onset/Context/Timing Onset: Today Context: Sudden Onset Conflict: Family Timing: Continuous Worsened by: Situational factors Relieved by: Nothing Associated Symptoms Associated Symptoms - Psych: Positive for Depressed and Suicidal Thoughts; Negative for Visual Hallucinations or Auditory Hallucinations Specific plan (suicidal thought): No specific plan Narrative Narrative: Patient presents with depression and suicidal ideation. Patient states this became worse today. Patient states he got into an argument with his significant other at home. Patient states he did not feel safe at home. Patient denies any specific plan for suicide. Patient states she just does not want to live anymore. Patient admits to decreased sleeping. Patient states that he does not want to eat as well. Patient denies any visual or auditory hallucinations. Patient denies any fevers or chills. [facility] Medical History Non-smoker Migraines Depression Anxiety Prediabetes Home Medications ?Medication ?Instructions ?Recorded ?Last Taken ?Type escitalopram oxalate 20 mg tablet 20 mg PO DAILY Depression and 04/24/23 Unknown History (Lexapro) Anxiety hydroxyzine HCl 25 mg tablet 25 mg PO Q6H PRN Anxiety 04/24/23 Unknown History mirtazapine 45 mg tablet 45 mg PO QHS Depression 04/24/23 Unknown History trazodone 50 mg tablet 50 mg PO QHS PRN sleep 04/24/23 Unknown History doxycycline hyclate 100 mg capsule 100 mg PO BID 14 days #28 caps 09/29/23 Unknown Rx oxycodone-acetaminophen 5 mg-325 1 tab PO Q6H PRN pain 3 days #12 09/29/23 Unknown Rx mg tablet (Percocet) tabs Allergy/AdvReac Type Severity Reaction Status Date / Time shellfish derived Allergy Severe Swelling Verified 10/01/23 11:48 Social History Smoking Status: Never smoker alcohol intake: current alcohol intake frequency: a few times a month substance use type: marijuana ROS ROS ED Constitutional Constitutional ED: Denies chills or fever(s) Eyes Eyes: Denies blurry vision or change in vision ENT ENT ED: Denies rhinorrhea or sore throat Cardiovascular Cardiovascular: Denies chest pain or palpitations Respiratory/Chest Respiratory/Chest: Denies cough or dyspnea Gastrointestinal Gastrointestinal: Reports nausea; Denies vomiting Genitourinary Genitourinary ED: Denies dysuria or hematuria Musculoskeletal Musculoskeletal: Denies back pain or neck pain Integumentary Denies abscess or rash Neurologic Neurologic: Denies headache(s) or weakness Psychiatric Psychiatric: Reports depression, suicidal ideation and suicidal thoughts Allergic/Immunologic Allergic/Immunologic ED: Denies mouth swelling or urticaria EXAM Physical Exam Const Vital Signs: 10/01/23 11:48 10/01/23 12:47 10/01/23 13:00 Temperature 97.2 F L Temperature Source Temporal Pulse Rate 98 90 88 Respiratory Rate 16 14 14 Blood Pressure 116/84 H 116/78 118/72 Blood Pressure Mean 94 90 87 Pulse Ox 94 99 99 10/01/23 13:13 Temperature Temperature Source Pulse Rate 88 Respiratory Rate 14 Blood Pressure 118/72 Blood Pressure Mean 87 Pulse Ox 99 Positive well nourished and well developed General Appearance ED: well developed and NAD HEENT Reports moist mucous membranes Neck supple and no JVD Resp normal respiratory effort and clear to auscultation bilaterally Cardio Rate: regular rate Rhythm: regular rhythm GI non-tender and non-distended Palpation: soft Neuro oriented x3, CN's II-XII intact bilaterally and no sensory deficits noted [place] Coma Scale: document GCS findings Spontaneous Obeys Commands Oriented 15 Sensorium / Orientation: alert Psych Activity / Motor Behavior: avoids eye contact Mood & Affect: depressed and flat affect Thought Content: suicidality, No homicidality, No delusion(s) and No hallucination(s) Insight: limited MDM MDM MDM Narrative Medical decision making narrative: Medical screening labs will be obtained. CBC will be obtained to assess for leukocytosis and anemia. Basic metabolic profile will be obtained to assess for electrolyte abnormality and renal function. Urine tox screen will be obtained to assess for substance abuse. Serum level will be obtained to assess for alcohol intoxication. Lab Data Attestation: I reviewed the patient's lab results. Lab results narrative: CBC was reviewed and was within normal limits. Basic metabolic profile was re viewed and was within normal limits. Urine tox screen was reviewed and was positive for cannabinoids and opiates. Serum ALT level was reviewed and was normal at less than 3.0. Labs: Laboratory Results - last 24 hr 10/01/23 10/01/23 12:15 12:25 WBC 7.7 RBC 4.82 Hgb 14.4 Hct 41.7 MCV 86.5 MCH 29.9 MCHC 34.5 RDW Std Deviation 39.0 RDW Coeff of Elliot 12.3 Plt Count 300 MPV 9.0 Immature Gran % (Auto) 0.400 Neut % (Auto) 63.8 Lymph % (Auto) 24.4 Posey % (Auto) 9.9 Eos % (Auto) 0.9 Baso % (Auto) 0.6 Absolute Neuts (auto) 4.9 Absolute Lymphs (auto) 1.88 Nucleated RBC % 0 Sodium 137 Potassium 3.4 L Chloride 105 Carbon Dioxide 28.0 Anion Gap 4 L BUN 20 H Creatinine 1.03 Estim Creat Clear Calc 92.74 Est GFR (MDRD) Af Amer 107 Est GFR (MDRD) Non-Af 89 BUN/Creatinine Ratio 19.4 Glucose 100 Calcium 9.0 Urine Opiates Screen POSITIVE H Urine Methadone Screen NEGATIVE Ur Barbiturates Screen NEGATIVE Ur Phencyclidine Scrn NEGATIVE Ur Amphetamines Screen NEGATIVE MDMA (Ecstasy) Screen NEGATIVE U Benzodiazepines Scrn NEGATIVE Urine Cocaine Screen NEGATIVE U Cannabinoids Screen POSITIVE H Ur Drug Screen Comment Ethyl Alcohol < 3.0 Management Discussion w/another healthcare provider: Behavioral health Treatment and Re-Evaluation Narrative: Patient is medically cleared. Crisis was in to evaluate the patient. Patient told crisis counselor that he did not want to be admitted to a psychiatric facility. Crisis counselor felt that this would probably be in his best interest. Patient also told the crisis counselor that he did not want to follow-up with anybody as an outpatient. Because of his limited insight and suicidal thoughts, patient was pink slipped. Crisis counselor will attempt to find placement for the patient. Care of the patient was turned over to the oncoming physician pending psychiatric placement. Discharge Plan Triage Chief Complaint: Suicidal ED Provider: Kalen Bird Dx/Rx/DC Orders Clinical Impression: Depression, Suicidal ideation Prescriptions: No Action trazodone 50 mg tablet 50 mg PO QHS PRN (Reason: sleep) hydroxyzine HCl 25 mg tablet 25 mg PO Q6H PRN (Reason: Anxiety) mirtazapine 45 mg tablet 45 mg PO QHS escitalopram oxalate [Lexapro] 20 mg tablet 20 mg PO DAILY doxycycline hyclate 100 mg capsule 100 mg PO BID 14 Days Qty: 28 0RF oxycodone-acetaminophen [Percocet] 5-325 mg tablet 1 tab PO Q6H PRN (Reason: pain) 3 Days Qty: 12 0RF Primary Care Provider: Nikolay Johnson Referrals: Nikolay Johnson MD [Primary Care Provider] - Print Language: Turkish
[2023-10-01 13:00] VITALS: BP 118/72; PULSE 88; RESP 14; O2SAT 99
[2023-10-01 13:05] LABS: Amphetamine Urine VISTA NEGATIVE (<1000 ng/mL); Barbiturate Urine VISTA NEGATIVE (< 200 ng/mL); Benzodiazepine Urine VISTA NEGATIVE (< 200 ng/mL); Cocaine Urine VISTA NEGATIVE (< 300 ng/mL); Ecstacy Urine VISTA NEGATIVE (< 500 ng/mL); Methadone Urine VISTA NEGATIVE (< 300 ng/mL); PCP Urine VISTA NEGATIVE (< 25 ng/mL); THC Urine VISTA POSITIVE (< 50 ng/mL); Vista UDS pH Range 6
[2023-10-01 13:06] LABS: Alcohol, Blood (Medical)-Serum < 3.0 mg/dL
[2023-10-01 13:13] VITALS: BP 118/72; PULSE 88; RESP 14; O2SAT 99
--- NOTE | 2023-10-01 13:38 | ED.RN ---
Lali from crisis will be over
--- NOTE | 2023-10-01 14:14 | ED.RN ---
Lali from crisis is here
[2023-10-01 21:20] VITALS: BP 117/84; PULSE 60; RESP 18; O2SAT 100
--- NOTE | 2023-10-01 21:35 | ED.RN ---
PER SHAWN ALVAREZ FOR PATIENT TO TAKE RX FOR DOXYCYLINE AT 2230
--- NOTE | 2023-10-01 22:24 | ED.RN ---
Pt upset about current situation. Asking for details about plan of care. This RN reviewed documentation and explained pink slip and placement to pt. Pt angry, No one is listening to chelsey reed. I'm going to lose my fucking mind Security @ [facility]. RN informed pt to reach out if pt has any needs, offered food and water but pt denied.
--- NOTE | 2023-10-01 22:31 | ED.RN ---
PATIENT ESCORTED BACK TO ROOM BY SANYATER. MAAME, SECURITY ASKED PATIENT NOT TO SWEAR OR USE THAT KIND OF LANGUAGE IN ED. WHEN MAAME WALKS AWAY PATIENT SAYS ''FUCK YOU''. THIS RN AND MAAME, AT BEDSIDE. THIS RN STATES THIS KIND OF BEHAVIOR WILL NOT BE TOLERATED IN HERE. YOU CANNOT TALK TO STAFF USING THAT KIND OF LANGUAGE. PT STATES YOU GUYS ARE HOLDING ME HERE AND I WANT TO LEAVE. RN STATES YOU ASKED FOR THE PHONE AND USING THIS BEHAVIOR YOU CANNOT HAVE A PHONE AT THIS TIME. RN STATES YOU NEED TO APOLOGIZE TO MAAME AND THEN WE CAN TALK ABOUT MAKING A PHONE CALL.. PT REFUSING TO APOLOGIZE. SITTER REMAINS AT BEDSIDE. LIGHTS TURNED OFF AND PATIENT SITTING IN BED.
[2023-10-01] MEDS: Ondansetron ODT 4 MG Tablet PO (23:06)
[2023-10-02 06:00] VITALS: BP 94/62; PULSE 57; RESP 14; O2SAT 95
[2023-10-02 07:48] VITALS: BP 94/62; PULSE 57; RESP 14; TEMP 36.7; O2SAT 95
== END 2023-10-02 07:50 ==
PROVIDERS: Emergency Provider Emergency Medicine; PCP Internal Medicine; Visit Provider Emergency Medicine
DX: R45.851 Suicidal ideations (principal); Z63.8 Other specified problems related to primary support group; F32.A Depression, unspecified; F41.9 Anxiety disorder, unspecified; Z63.0 Problems in relationship with spouse or partner
CPT/HCPCS: 80048; 80307; 82077; 85025; 99285

== ENCOUNTER → 2023-11-06 | Outpatient (CLI) | payer BC, SELFPAY ==
--- NOTE | 2023-11-06 16:02 | US_ITS ---
INDICATION: Testicular pain EXAMINATION: Ultrasound US Scrotum (Contents) TECHNIQUE: Realtime ultrasound of the testicles was performed with grayscale, Color Doppler and spectral Doppler analysis. COMPARISON: Prior study dated: 07/24/2011 FINDINGS: RIGHT: TESTIS: 4.7 x 3.2 x 2.2 cm. Normal in size and echotexture, without focal lesion. COLOR DOPPLER: Normal arterial flow present in the testicle with monophasic waveforms. EPIDIDYMIS: Normal in size and echotexture, without focal lesion. [Normal color Doppler flow pattern in the epididymis. HYDROCELE: Moderate-sized hydrocele. VARICOCELE: None. LEFT: TESTIS: 4.4 x 2.7 x 2.3 cm. Normal in size and echotexture, without focal lesion. COLOR DOPPLER: Normal arterial flow present in the testicle with monophasic waveforms. EPIDIDYMIS: Normal in size and echotexture, with 1 cm epididymal head cyst. This has internal echoes. [Normal color Doppler flow pattern in the epididymis. HYDROCELE: Small . VARICOCELE: Mild varicocele. US/Testicular with Arterial Flow IMPRESSION: Moderate right and small left hydroceles. Mild left varicocele. No mass. No torsion. Electronically Signed: Maurisio Tomas MD at 22:19 EDT ,
== END | disposition home or self-care (01) ==
PROVIDERS: PCP Internal Medicine; Referring Provider Emergency Medicine; Visit Provider Emergency Medicine
DX: N50.819 Testicular pain, unspecified (principal)
CPT/HCPCS: 76870; 93976